=== PATIENT | female | born 1960 | race Hispanic/Latino ===

== ENCOUNTER 2018-01-13 13:50 | Inpatient (IN) | payer MEDICAID, OTHER ==
[2018-01-13 14:01] VITALS: BMI 22.5
[2018-01-13] MEDS ORDERED: Albuterol-Ipratrop 3 mg / 0.5 (3 ml) UD IH STA (14:17)
--- NOTE | 2018-01-13 14:22 | ED PDOC ---
Arrival/HPI - General Chief Complaint: Shortness Of Breath Historian: Patient, Spouse, Family (Daughter) - History of Present Illness Time/Duration: Other (10 days) Symptom Onset: Gradual Symptom Course: Worsening Severity Level: Moderate Activities at Onset: Rest Associated Symptoms (Text): 01/13/18 14:19 Patient complains of approximately a 10 day history of worsening cough congestion shortness of breath chest pain sputum production fever to 102 with chills. She continues to smoke. There was some nausea and vomiting last week, but currently none. No abdominal pain. Past Medical History - Psychiatric Hx Substance Use: No Family/Social History - Physician Review Nursing Documentation Reviewed: Yes Family/Social History: Unknown Family HX Smoking Status: Light Smoker < 10 Cigarettes Daily Hx Alcohol Use: No Hx Substance Use: No Allergies/Home Meds Allergies/Adverse Reactions: Allergies amoxicillin Allergy (Verified 01/13/18 14:03) ANAPHYLAXIS Home Medications: Home Meds Medication Instructions Recorded Confirmed No Known Home Med 01/13/18 01/13/18 Review of Systems - Physician Review All systems were reviewed & negative as marked: Yes - Review of Systems Constitutional: Fatigue, Fevers Respiratory: SOB, Cough, Wheezing Cardiovascular: Chest Pain. absent: Palpitations, Syncope Gastrointestinal: Nausea, Vomiting. absent: Abdominal Pain, Constipation, Diarrhea, Anorexia Neurological: absent: Headache, Dizziness, Focal Weakness Physical Exam Vital Signs Temp Pulse Resp BP Pulse Ox 01/13/18 14:00 97.2 F L 89 19 148/72 100 Temperature: Afebrile Blood Pressure: Normal Pulse: Regular Respiratory Rate: Normal Appearance: Positive for: Non-Toxic, Comfortable, Other (Chronically ill- appearing thin cachectic) Pain Distress: None Mental Status: Positive for: Alert and Oriented X 3 - Systems Exam Head: Present: Atraumatic, Normocephalic Pupils: Present: PERRL Extroacular Muscles: Present: EOMI Conjunctiva: Present: Normal Ears: Present: NORMAL TM, Normal Canal. No: Erythema, TM Bulging Mouth: Present: Moist Mucous Membranes, Other (Poor dentition and multiple missing teeth) Pharnyx: No: ERYTHEMA, EXUDATE, TONSILS ENLARGED Neck: Present: Normal Range of Motion Respiratory/Chest: Present: Wheezes, Decreased Breath Sounds, Rhonchi. No: Good Air Exchange, Respiratory Distress, Accessory Muscle Use, Rales, Retracting, Tachypneic, Tender to Palpation Cardiovascular: Present: Regular Rate and Rhythm, Normal S1, S2. No: Murmurs Abdomen: No: Tenderness, Distention, Peritoneal Signs, Rebound, Guarding Upper Extremity: Present: Normal Inspection. No: Cyanosis, Edema Lower Extremity: Present: Normal Inspection. No: Edema Neurological: Present: GCS=15, CN II-XII Intact, Speech Normal, Motor Func Grossly Intact Skin: Present: Warm, Dry, Normal Color. No: Rashes Psychiatric: Present: Alert, Oriented x 3, Normal Insight, Normal Concentration Medical Decision Making ED Course and Treatment: 01/13/18 14:21 EKG shows normal sinus rhythm rate approximately 80 with poor R waves and no acute ST or T-wave changes. - RAD Interpretation Radiology Orders: 01/13/18 14:17 CHEST PORTABLE [RAD] Stat Chest one view shows no infiltrate effusion or cardiomegaly. Consistent with COPD. Data Abstractor: ED Physician Disposition/Present on Arrival - Present on Arrival Any Indicators Present on Arrival: No History of DVT/PE: No History of Uncontrolled Diabetes: No Urinary Catheter: No History of Decub. Ulcer: No History Surgical Site Infection Following: None - Disposition Have Diagnosis and Disposition been Completed?: Yes Diagnosis: Chest pain, Chronic obstructive pulmonary disease Disposition: HOSPITALIZED Disposition Time: 15:29 Patient Plan: Observation, Telemetry Condition: GOOD Discharge Instructions (ExitCare): Chest Pain (ED) Forms: [facility] ([place])
[2018-01-13 14:49] LABS: BASO # 0.01 K/mm3 (0.0-2.0); BASO % 0.2 % (0.0-3.0); EOS % 0.3 % (1.5-5.0); GRAN # 4.12 (1.4-6.5); HEMOGLOBIN 16.8 g/dL (12.0-16.0); LYMPH # 1.6 (1.2-3.4); MEAN CELL VOLUME 90.6 fl (80.0-105.0); MEAN CORPUSCULAR HEMOGLOBIN 32.1 pg (25.0-35.0); MEAN CORPUSCULAR HGB CONC 35.4 g/dl (31.0-37.0); MEAN PLATELET VOLUME 10.2 fl (7.0-11.0); MONO # 0.5 (0.1-0.6); MONO % 8.5 % (1.0-6.0); RBC 5.23 10^6/uL (3.5-6.1); RED CELL DISTRIBUTION WIDTH 12.8 % (11.5-14.5); WHITE BLOOD COUNT 6.2 10^3/uL (4.5-11.0)
[2018-01-13 14:52] LABS: ALB/GLOB RATIO 1.2 (1.1-1.8); ALBUMIN 4.2 g/dL (3.0-4.8); ALT/SGPT 24 U/L (7-56); AST/SGOT 37 U/L (14-36); BLOOD UREA NITROGEN 5 mg/dL (7-21); CALCIUM 9.3 mg/dL (8.4-10.5); GFR NON-AFRICAN AMERICAN > 60
[2018-01-13 15:03] LABS: B-TYPE NATRIURETIC PEPTIDE 289 pg/mL (0-450); TROPONIN I 0.02 ng/mL
--- NOTE | 2018-01-13 15:14 | RAD ---
Date of service: 01/13/2018 HISTORY: SOB COMPARISON: No prior. FINDINGS: LUNGS: Lungs are hyperinflated with flattened diaphragms with coarsened/increased interstitial markings consistent with chronic changes of COPD. There may be some minimal linear atelectasis and or scarring changes both lung bases... PLEURA: No significant pleural effusion identified, no pneumothorax apparent. CARDIOVASCULAR: No aortic atherosclerotic calcification present. Normal cardiac size. No pulmonary vascular congestion. OSSEOUS STRUCTURES: No significant abnormalities. VISUALIZED UPPER ABDOMEN: Normal. OTHER FINDINGS: None. IMPRESSION: Lungs are hyperinflated with flattened diaphragms with coarsened/increased interstitial markings consistent with chronic changes of COPD. There may be some minimal linear atelectasis and or scarring changes both lung bases...
[2018-01-13] MEDS ORDERED: Albuterol 0.083% Inhal Sol (2.5 mg/3 mL) UD INH STA (15:26)
[2018-01-13] MEDS ORDERED: Albuterol-Ipratrop 3 mg / 0.5 (3 ml) UD IH PRN (16:11)
--- NOTE | 2018-01-13 16:31 | CP.PCM.PN ---
Objective - Vital Signs/Intake and Output Vital Signs (last 24 hours): Temp Pulse Resp BP Pulse Ox 98.0 F 78 18 101/75 100 01/13/18 15:20 01/13/18 15:20 01/13/18 15:20 01/13/18 15:20 01/13/18 15:20 - Medications Medications: Current Medications Albuterol/Ipratropium (Duoneb 3 Mg/0.5 Mg (3 Ml) Ud) 3 ml IH Q4H PRN PRN Reason: Shortness of Breath Azithromycin (Zithromax 500mg In Ns) 500 mg in 250 mls @ 167 mls/hr IVPB DAILY ESME; Protocol Methylprednisolone (Solu-Medrol) 40 mg IVP DAILY ESME - Labs Labs: 01/13/18 14:36 01/13/18 14:36
[2018-01-13 16:46] LABS: FREE T4 1.7 ng/dL (0.78-2.19)
[2018-01-13 17:25] LABS: OSMOLALITY,URINE 158 mosm/kg (300-1000)
[2018-01-13] MEDS ORDERED: Pneumococcal 23-Valent Vaccine IM ONE (18:12)
[2018-01-13] MEDS ORDERED: Influenza Vaccine 60 mcg/0.5 mL SYR (4YR UP) IM ONE (18:12)
[2018-01-13] MEDS ORDERED: Iohexol 350 MG/100 ML VIAL ONE (18:52)
--- NOTE | 2018-01-13 19:42 | CP.PCM.HP ---
<Ania Vivas - Last Filed: 01/13/18 20:31> History of Present Illness - History of Present Illness History of Present Illness: Resident History & Physical for Hospitalist Service Patient is a 57 year old female with past medical history of sciatica presenting with chief complaint of shortness of breath that began one week prior. She has also had a productive cough with whitish sputum in addition to a fever of 102.6 and chills. Patient's daughter at bedside states that she herself was ill recently with similar symptoms and that her symptoms resolved after taking amoxicillin. Patient also admits to sharp, intermittent rib pain on her anterior chest wall which she states is exacerbated by coughing. She has become debilitated to the degree that she is unable to walk down the hallway of her house without becoming short of breath. Denies headache, dizziness, abdominal pain, diarrhea, constipation, dysuria. PMH: sciatica PSH: denies SHx: denies alcohol and illicit drug use. smokes 6 cigarettes for approximately 40 years Allergies: amoxicillin PMD: none 12 point ROS was negative except as stated in HPI Present on Admission - Present on Admission Any Indicators Present on Admission: No Review of Systems - Review of Systems All systems: reviewed and no additional remarkable complaints except (as stated in HPI) Past Patient History - Past Social History Smoking Status: Light Smoker < 10 Cigarettes Daily - CARDIAC Hx Cardiac Disorders: No - PULMONARY Hx Respiratory Disorders: Yes (smokes 6 cigs a day) - NEUROLOGICAL Hx Neurological Disorder: Yes (cold b/l feet ankles) Other/Comment: left leg numbness at times from work related injury to b/l sciatica 8-9 yrs ago, chronic shooting pain and sometimes cannot bear weight to left leg - HEENT Hx HEENT Problems: Yes (missing teeth) - RENAL Hx Chronic Kidney Disease: No - ENDOCRINE/METABOLIC Hx Endocrine Disorders: No - HEMATOLOGICAL/ONCOLOGICAL Hx Blood Disorders: No - INTEGUMENTARY Hx Dermatological Problems: Yes Other/Comment: tips and bottom of toes of both feet red, slight swelling - MUSCULOSKELETAL/RHEUMATOLOGICAL Hx Falls: No - GASTROINTESTINAL Hx Gastrointestinal Disorders: (takes otc nexium for heartburn when needed) - GENITOURINARY/GYNECOLOGICAL Hx Genitourinary Disorders: No - PSYCHIATRIC Hx Substance Use: No - SURGICAL HISTORY Hx Surgeries: No Meds Allergies/Adverse Reactions: Allergies Allergy/AdvReac Type Severity Reaction Status Date / Time amoxicillin Allergy ANAPHYLAXIS Verified 01/13/18 14:03 Physical Exam - Constitutional Appears: Non-toxic, No Acute Distress, Cachectic - Head Exam Head Exam: ATRAUMATIC, NORMOCEPHALIC - Eye Exam Eye Exam: EOMI, Normal appearance, PERRL - ENT Exam ENT Exam: Mucous Membranes Moist, Normal Exam, Normal External Ear Exam - Neck Exam Neck exam: Negative for: Lymphadenopathy, Tenderness, Thyromegaly - Respiratory Exam Respiratory Exam: Clear to Auscultation Bilateral, Wheezes, NORMAL BREATHING PATTERN. absent: Accessory Muscle Use, Decreased Breath Sounds, Rales, Rhonchi, Respiratory Distress, Stridor - Cardiovascular Exam Cardiovascular Exam: REGULAR RHYTHM, +S1, +S2. absent: Systolic Murmur - GI/Abdominal Exam GI & Abdominal Exam: Normal Bowel Sounds, Soft. absent: Distended, Guarding, Rebound, Rigid, Tenderness - Extremities Exam Extremities exam: Positive for: normal capillary refill, pedal pulses present. Negative for: pedal edema, tenderness Additional comments: clubbing noted on nails in upper extremities bilaterally - Neurological Exam Neurological exam: Alert, CN II-XII Intact, Oriented x3 - Psychiatric Exam Psychiatric exam: Normal Affect, Normal Mood - Skin Skin Exam: Dry, Intact, Normal Color, Pallor Results - Vital Signs Recent Vital Signs: Last Vital Signs Temp 97.8 F 01/13/18 18:00 Pulse 69 01/13/18 18:00 Resp 18 01/13/18 18:00 BP 142/80 01/13/18 18:00 Pulse Ox 100 01/13/18 15:20 - Labs Result Diagrams: 01/13/18 14:36 01/13/18 14:36 Labs: Laboratory Results - last 24 hr 01/13/18 01/13/18 01/13/18 14:36 14:36 14:36 WBC 6.2 RBC 5.23 Hgb 16.8 H Hct 47.4 MCV 90.6 MCH 32.1 MCHC 35.4 RDW 12.8 Plt Count 165 MPV 10.2 Gran % 66.0 Lymph % (Auto) 25.0 [place] % (Auto) 8.5 H Eos % (Auto) 0.3 L Baso % (Auto) 0.2 Gran # 4.12 Lymph # (Auto) 1.6 [place] # (Auto) 0.5 Eos # (Auto) 0.0 Baso # (Auto) 0.01 D-Dimer, Quantitative 313 H Sodium 128 L Potassium 4.7 Chloride 86 L Carbon Dioxide 34 H Anion Gap 13 BUN 5 L Creatinine 0.4 L Est GFR ( Amer) > 60 Est GFR (Non-Af Amer) > 60 Random Glucose 109 Calcium 9.3 Magnesium 1.9 Total Bilirubin 0.7 AST 37 H ALT 24 Alkaline Phosphatase 70 Lactate Dehydrogenase 493 Total Creatine Kinase 99 Troponin I 0.02 NT-Pro-B Natriuret Pep 289 Total Protein 7.7 Albumin 4.2 Globulin 3.4 Albumin/Globulin Ratio 1.2 Free T4 TSH 3rd Generation Urine Osmolality Ur Random Sodium 01/13/18 01/13/18 14:36 17:00 WBC RBC Hgb Hct MCV MCH MCHC RDW Plt Count MPV Gran % Lymph % (Auto) [place] % (Auto) Eos % (Auto) Baso % (Auto) Gran # Lymph # (Auto) [place] # (Auto) Eos # (Auto) Baso # (Auto) D-Dimer, Quantitative Sodium Potassium Chloride Carbon Dioxide Anion Gap BUN Creatinine Est GFR ( Amer) Est GFR (Non-Af Amer) Random Glucose Calcium Magnesium Total Bilirubin AST ALT Alkaline Phosphatase Lactate Dehydrogenase Total Creatine Kinase Troponin I NT-Pro-B Natriuret Pep Total Protein Albumin Globulin Albumin/Globulin Ratio Free T4 1.70 TSH 3rd Generation 6.59 H Urine Osmolality 158 L Ur Random Sodium < 5 Assessment & Plan - Assessment and Plan (Free Text) Assessment: Patient is a 57 year old female with no known past medical history presenting with chief complaint of shortness of breath and admitted for workup and management of acute exacerbation of COPD. Plan: Shortness of breath - likely due to acute exacerbation of COPD - currently afebrile, no leukocytosis - EKG shows normal sinus rhythm - CXR shows hyperinflated lungs with flattened diaphragms, increased interstitial markings consistent with chronic COPD - Albuterol, duonebs, aspirin 324 mg PO, methylprednisolone 125 mg IVP give in ED - Duonebs Q4H PRN - methylprednisolone 40 mg IVP daily - troponins Q6H - followup chest CT - PT consulted - counseled on tobacco cessation Elevated d-dimer - followup CT angio to rule out PE Hyponatremia - Na 128 on admission - urine studies Case discussed with attending Dr. Nava Vivas PGY-1 - Date & Time Date: 01/13/18 Time: 16:00 <Clement Vick - Last Filed: 01/14/18 12:11> Results - Vital Signs Recent Vital Signs: Last Vital Signs Temp 98.6 F 01/14/18 06:00 Pulse 79 01/14/18 10:00 Resp 20 01/14/18 06:00 BP 112/72 01/14/18 06:00 Pulse Ox 98 01/14/18 06:00 - Labs Result Diagrams: 01/14/18 07:00 01/14/18 07:00 Labs: Laboratory Results - last 24 hr 01/13/18 01/13/18 01/13/18 14:36 14:36 14:36 WBC 6.2 RBC 5.23 Hgb 16.8 H Hct 47.4 MCV 90.6 MCH 32.1 MCHC 35.4 RDW 12.8 Plt Count 165 MPV 10.2 Gran % 66.0 Lymph % (Auto) 25.0 [place] % (Auto) 8.5 H Eos % (Auto) 0.3 L Baso % (Auto) 0.2 Gran # 4.12 Lymph # (Auto) 1.6 [place] # (Auto) 0.5 Eos # (Auto) 0.0 Baso # (Auto) 0.01 D-Dimer, Quantitative 313 H Sodium 128 L Potassium 4.7 Chloride 86 L Carbon Dioxide 34 H Anion Gap 13 BUN 5 L Creatinine 0.4 L Est GFR ( Amer) > 60 Est GFR (Non-Af Amer) > 60 Random Glucose 109 Calcium 9.3 Magnesium 1.9 Total Bilirubin 0.7 AST 37 H ALT 24 Alkaline Phosphatase 70 Lactate Dehydrogenase 493 Total Creatine Kinase 99 Troponin I 0.02 NT-Pro-B Natriuret Pep 289 Total Protein 7.7 Albumin 4.2 Globulin 3.4 Albumin/Globulin Ratio 1.2 Free T4 TSH 3rd Generation Urine Color Urine Appearance Urine pH Ur Specific [place] Urine Protein Urine Glucose (UA) Urine Ketones Urine Blood Urine Nitrate Urine Bilirubin Urine Urobilinogen Ur Leukocyte Esterase Urine Osmolality Ur Random Sodium 01/13/18 01/13/18 01/13/18 14:36 17:00 17:00 WBC RBC Hgb Hct MCV MCH MCHC RDW Plt Count MPV Gran % Lymph % (Auto) [place] % (Auto) Eos % (Auto) Baso % (Auto) Gran # Lymph # (Auto) [place] # (Auto) Eos # (Auto) Baso # (Auto) D-Dimer, Quantitative Sodium Potassium Chloride Carbon Dioxide Anion Gap BUN Creatinine Est GFR ( Amer) Est GFR (Non-Af Amer) Random Glucose Calcium Magnesium Total Bilirubin AST ALT Alkaline Phosphatase Lactate Dehydrogenase Total Creatine Kinase Troponin I NT-Pro-B Natriuret Pep Total Protein Albumin Globulin Albumin/Globulin Ratio Free T4 1.70 TSH 3rd Generation 6.59 H Urine Color Yellow Urine Appearance Clear Urine pH 6.5 Ur Specific [place] <= 1.005 Urine Protein Negative Urine Glucose (UA) Negative Urine Ketones 15 H Urine Blood Negative Urine Nitrate Negative Urine Bilirubin Negative Urine Urobilinogen 0.2 Ur Leukocyte Esterase Negative Urine Osmolality 158 L Ur Random Sodium < 5 01/13/18 01/14/18 01/14/18 20:47 02:00 07:00 WBC 5.2 RBC 5.20 Hgb 16.6 H Hct 46.7 MCV 89.8 MCH 31.9 MCHC 35.5 RDW 12.8 Plt Count 173 MPV 10.5 Gran % 68.0 Lymph % (Auto) 25.3 [place] % (Auto) 6.5 H Eos % (Auto) 0.0 L Baso % (Auto) 0.2 Gran # 3.55 Lymph # (Auto) 1.3 [place] # (Auto) 0.3 Eos # (Auto) 0.0 Baso # (Auto) 0.01 D-Dimer, Quantitative Sodium Potassium Chloride Carbon Dioxide Anion Gap BUN Creatinine Est GFR ( Amer) Est GFR (Non-Af Amer) Random Glucose Calcium Magnesium Total Bilirubin AST ALT Alkaline Phosphatase Lactate Dehydrogenase Total Creatine Kinase Troponin I < 0.01 D < 0.01 NT-Pro-B Natriuret Pep Total Protein Albumin Globulin Albumin/Globulin Ratio Free T4 TSH 3rd Generation Urine Color Urine Appearance Urine pH Ur Specific [place] Urine Protein Urine Glucose (UA) Urine Ketones Urine Blood Urine Nitrate Urine Bilirubin Urine Urobilinogen Ur Leukocyte Esterase Urine Osmolality Ur Random Sodium 01/14/18 07:00 WBC RBC Hgb Hct MCV MCH MCHC RDW Plt Count MPV Gran % Lymph % (Auto) [place] % (Auto) Eos % (Auto) Baso % (Auto) Gran # Lymph # (Auto) [place] # (Auto) Eos # (Auto) Baso # (Auto) D-Dimer, Quantitative Sodium 130 L Potassium 4.4 Chloride 91 L Carbon Dioxide 30 Anion Gap 13 BUN 11 Creatinine 0.5 L Est GFR ( Amer) > 60 Est GFR (Non-Af Amer) > 60 Random Glucose 106 Calcium 8.9 Magnesium Total Bilirubin 0.6 AST 40 H ALT 24 Alkaline Phosphatase 66 Lactate Dehydrogenase Total Creatine Kinase Troponin I NT-Pro-B Natriuret Pep Total Protein 7.4 Albumin 4.0 Globulin 3.4 Albumin/Globulin Ratio 1.2 Free T4 TSH 3rd Generation Urine Color Urine Appearance Urine pH Ur Specific [place] Urine Protein Urine Glucose (UA) Urine Ketones Urine Blood Urine Nitrate Urine Bilirubin Urine Urobilinogen Ur Leukocyte Esterase Urine Osmolality Ur Random Sodium Attending/Attestation - Attestation I have personally seen and examined this patient.: Yes I have fully participated in the care of the patient.: Yes I have reviewed all pertinent clinical information: Yes Notes (Text): 01/14/18 12:08 Medical record note made by the resident after discussion with my direction and input after the patient was personally seen and examined by me. I have reviewed the chart and agree that the record accurately reflects by personal performance of the history, physical exam, data review, and medical decision-making, in the course for the patient. I have also personally directed the plan of care. 57 year old female with past medical history of sciatica, malnutrition, chronic smoking is admitted cough and dyspne and is found to have COPD Exacerbation . We will start patient on Neb/Steroid and antibiotics.We will monitor chest pain, Atypical in nnature, EKG is negative for ischemic changes, we will get serial troponin. Elevated d dimer, CTA is negative for Pulmonary embolism on preliminary report. Management plan was discussed in detail with patientand family. Education was provided.
[2018-01-13 19:51] LABS: PH,URINE 6.5 (4.7-8.0); URINE BILIRUBIN NEGATIVE (NEGATIVE); URINE BLOOD NEGATIVE (NEGATIVE); URINE GLUCOSE (UA) NEGATIVE (NEGATIVE); URINE LEUKOCYTE ESTERASE NEGATIVE Leu/uL (NEGATIVE); URINE PROTEIN NEGATIVE mg/dL (<30 mg/dL); URINE UROBILINOGEN 0.2 E.U./dL (<1 E.U./dL)
[2018-01-13 19:53] LABS: URINE APPEARANCE CLEAR (CLEAR); URINE COLOR YELLOW (YELLOW)
[2018-01-14 08:03] LABS: ALB/GLOB RATIO 1.2 (1.1-1.8); ALT/SGPT 24 U/L (7-56); AST/SGOT 40 U/L (14-36); BLOOD UREA NITROGEN 11 mg/dL (7-21); CALCIUM 8.9 mg/dL (8.4-10.5); GFR NON-AFRICAN AMERICAN > 60
[2018-01-14 08:09] LABS: BASO # 0.01 K/mm3 (0.0-2.0); BASO % 0.2 % (0.0-3.0); GRAN # 3.55 (1.4-6.5); HEMOGLOBIN 16.6 g/dL (12.0-16.0); LYMPH # 1.3 (1.2-3.4); LYMPH % 25.3 % (22.0-35.0); MEAN CELL VOLUME 89.8 fl (80.0-105.0); MEAN CORPUSCULAR HEMOGLOBIN 31.9 pg (25.0-35.0); MEAN CORPUSCULAR HGB CONC 35.5 g/dl (31.0-37.0); MEAN PLATELET VOLUME 10.5 fl (7.0-11.0); MONO # 0.3 (0.1-0.6); MONO % 6.5 % (1.0-6.0); RBC 5.2 10^6/uL (3.5-6.1); RED CELL DISTRIBUTION WIDTH 12.8 % (11.5-14.5); WHITE BLOOD COUNT 5.2 10^3/uL (4.5-11.0)
[2018-01-14] MEDS: MethylPREDNISolone 40 mg Vial IVP SCH (09:16)
[2018-01-14] MEDS: Azithromycin 500MG/NS 250ml 500 MG/250 ML BAG IVPB SCH (09:32)
--- NOTE | 2018-01-14 12:05 | CP.PCM.PN ---
<Eric Storm - Last Filed: 01/14/18 12:57> Subjective - Date & Time of Evaluation Date of Evaluation: 01/14/18 Time of Evaluation: 09:00 - Subjective Subjective: Eric Storm PGY-1 Progress Note for Hospitalist Service Patient seen and evaluated at bedside. No acute events reported overnight. Patient reports shortness of breath, cough and dizziness. Denies chest pain, palpitations, headaches, abdominal pain, fevers, chills, nausea or vomiting. Objective - Vital Signs/Intake and Output Vital Signs (last 24 hours): Temp Pulse Resp BP Pulse Ox 98.6 F 79 20 112/72 98 01/14/18 06:00 01/14/18 10:00 01/14/18 06:00 01/14/18 06:00 01/14/18 06:00 Intake and Output: 01/14/18 01/14/18 06:59 18:59 Intake Total 300 180 Output Total 30 0 Balance 270 180 - Medications Medications: Current Medications Albuterol/Ipratropium (Duoneb 3 Mg/0.5 Mg (3 Ml) Ud) 3 ml IH Q4H PRN PRN Reason: Shortness of Breath Last Admin: 01/14/18 08:20 Dose: 3 ml Guaifenesin (Robitussin) 100 mg PO Q4H PRN PRN Reason: Cough Azithromycin (Zithromax 500mg In Ns) 500 mg in 250 mls @ 167 mls/hr IVPB DAILY ESME; Protocol Last Admin: 01/14/18 09:32 Dose: 167 mls/hr Methylprednisolone (Solu-Medrol) 40 mg IVP DAILY ESME Last Admin: 01/14/18 09:16 Dose: 40 mg Ondansetron HCl (Zofran Inj) 4 mg IVP Q6H PRN PRN Reason: Nausea/Vomiting Last Admin: 01/14/18 09:17 Dose: 4 mg - Labs Labs: 01/14/18 07:00 01/14/18 07:00 - Additional Findings Additional findings: - Constitutional Appears: Non-toxic, No Acute Distress, Cachectic - Head Exam Head Exam: ATRAUMATIC, NORMOCEPHALIC - Eye Exam Eye Exam: EOMI, Normal appearance, PERRL - ENT Exam ENT Exam: Mucous Membranes Moist, Normal Exam, Normal External Ear Exam - Neck Exam Neck exam: Negative for: Lymphadenopathy, Tenderness, Thyromegaly - Respiratory Exam Respiratory Exam: Wheezes diffusely, NORMAL BREATHING PATTERN. absent: Accessor y Muscle Use, Decreased Breath Sounds, Rales, Rhonchi, Respiratory Distress, Stridor - Cardiovascular Exam Cardiovascular Exam: REGULAR RHYTHM, +S1, +S2. absent: Systolic Murmur - GI/Abdominal Exam GI & Abdominal Exam: Normal Bowel Sounds, Soft. absent: Distended, Guarding, Rebound, Rigid, Tenderness - Extremities Exam Extremities exam: Positive for: normal capillary refill, pedal pulses present. Negative for: pedal edema, tenderness Additional comments: clubbing noted on nails in upper extremities bilaterally - Neurological Exam Neurological exam: Alert, CN II-XII Intact, Oriented x3 - Psychiatric Exam Psychiatric exam: Normal Affect, Normal Mood - Skin Skin Exam: Dry, Intact, Normal Color, Pallor Assessment and Plan - Assessment and Plan (Free Text) Assessment: Patient is a 57 year old female with no known past medical history presenting with chief complaint of shortness of breath and admitted for workup and management of acute exacerbation of COPD. Plan: Shortness of breath - likely due to acute exacerbation of COPD - currently afebrile, no leukocytosis - EKG shows normal sinus rhythm - CXR shows hyperinflated lungs with flattened diaphragms, increased interstitial markings consistent with chronic COPD - Albuterol, duonebs, aspirin 324 mg PO, methylprednisolone 125 mg IVP give in ED - Duonebs Q6H esme and q2 PRN - methylprednisolone 40 mg IVP daily - Azitrhomycing 500 mg daily IVPB - troponins Q6H neg x3 - PT consulted - f/u recs - counseled on tobacco cessation Hyponatremia - Na 128 on admission , corrected to 130 this AM - f/u urine studies Elevated D-dimer - followup CT angio to rule out PE negative on prelim read. Follow up final read Nausea Zofran 4mg q6h PRN Cough Robitussin Patient seen, case reviewed and plan approved by Dr. Vick. Eric Storm, PGY-1 <Clement Vick - Last Filed: 01/14/18 13:39> Objective - Vital Signs/Intake and Output Vital Signs (last 24 hours): Temp Pulse Resp BP Pulse Ox 98.0 F 76 20 128/71 98 01/14/18 12:00 01/14/18 12:00 01/14/18 12:00 01/14/18 12:00 01/14/18 06:00 Intake and Output: 01/14/18 01/14/18 06:59 18:59 Intake Total 300 180 Output Total 30 0 Balance 270 180 - Medications Medications: Current Medications Albuterol/Ipratropium (Duoneb 3 Mg/0.5 Mg (3 Ml) Ud) 3 ml IH [id number] ESME Last Admin: 01/14/18 13:30 Dose: 3 ml Albuterol/Ipratropium (Duoneb 3 Mg/0.5 Mg (3 Ml) Ud) 3 ml IH Q2H PRN PRN Reason: Shortness of Breath Guaifenesin (Robitussin) 100 mg PO Q4H PRN PRN Reason: Cough Azithromycin (Zithromax 500mg In Ns) 500 mg in 250 mls @ 167 mls/hr IVPB DAILY ESME; Protocol Last Admin: 01/14/18 09:32 Dose: 167 mls/hr Methylprednisolone (Solu-Medrol) 40 mg IVP DAILY ESME Last Admin: 01/14/18 09:16 Dose: 40 mg Ondansetron HCl (Zofran Inj) 4 mg IVP Q6H PRN PRN Reason: Nausea/Vomiting Last Admin: 01/14/18 09:17 Dose: 4 mg - Labs Labs: 01/14/18 07:00 01/14/18 07:00 Attending/Attestation - Attestation I have personally seen and examined this patient.: Yes I have fully participated in the care of the patient.: Yes I have reviewed all pertinent clinical information, including history, physical exam and plan: Yes Notes (Text): 01/14/18 13:38 Medical record note made by the resident after discussion with my direction and input after the patient was personally seen and examined by me. I have reviewed the chart and agree that the record accurately reflects by personal performance of the history, physical exam, data review, and medical decision-making, in the course for the patient. I have also personally directed the plan of care. 57 year old female with past medical history of sciatica, malnutrition, chronic smoking was admitted cough and dyspne and was found to have COPD Exacerbation . Patient is still having cough and is dyspnic. Continue Neb/steroid and antibiotics. We will follow up Echo to rule out Pulmonary HTN. chest pain, Atypical in nnature, EKG is negative for ischemic changes, serial troponins are normal. Elevated d dimer, CTA is negative for Pulmonary embolism on preliminary report. Management plan was discussed in detail with patientand family. Education was provided.
[2018-01-14] MEDS ORDERED: Albuterol-Ipratrop 3 mg / 0.5 (3 ml) UD IH PRN (12:09)
[2018-01-14] MEDS: Albuterol-Ipratrop 3 mg / 0.5 (3 ml) UD IH SCH ×2 (13:30→19:31)
--- NOTE | 2018-01-14 15:47 | CT ---
Date of service: 01/13/2018 PROCEDURE: CT Chest with contrast (Pulmonary Angiogram) HISTORY: r/o PE COMPARISON: None available. TECHNIQUE: Axial computed tomography images were obtained of the chest in the pulmonary arterial phase of enhancement. Coronal and sagittal reformatted images were created and reviewed. Intravenous contrast dose: 100 cc Omnipaque 350 Radiation dose: Total exam DLP = 115.92 mGy-cm. This CT exam was performed using one or more of the following dose reduction techniques: Automated exposure control, adjustment of the mA and/or kV according to patient size, and/or use of iterative reconstruction technique. FINDINGS: PULMONARY ARTERIES: The visualized pulmonary trunk, right and left main, lobar, segmental and proximal subsegmental branches of the pulmonary arteries are well opacified with no definitive filling defects seen to suggest acute central pulmonary embolus. Pulmonary trunk measures approximately 01.9 cm. AORTA: No acute findings. No thoracic aortic aneurysm. Ascending thoracic aorta measures approximately 2.4 cm and descending thoracic aorta measures approximately 1.9 cm. Minor aortic atherosclerotic calcification or mural plaque present. LUNGS: Extensive and severe centrilobular and panlobular as well as bullous emphysematous changes. Small nodular density left apex likely represents scarring which is associate with adjacent pleural thickening however follow-up CT scan at 3-6 month interval recommended to assess stability. PLEURAL SPACES: Unremarkable. No effusion or pneumothorax.. Minor left and minimal right apical pleural thickening. There is a tiny calcific density seen in the left lung apex as well. HEART: Heart size within range of normal. No significant pericardial effusion. The LYMPH NODES: No lymphadenopathy. BONES, CHEST WALL: Mild multilevel degenerative spondylosis of the thoracic spine. OTHER FINDINGS: Unremarkable. IMPRESSION: No evidence of acute central pulmonary embolus. Extensive and severe centrilobular and panlobular as well as bullous emphysematous changes. Small nodular density left apex likely represents scarring which is associate with adjacent pleural thickening however follow-up CT scan at 3-6 month interval recommended to assess stability. No acute consolidation.
--- NOTE | 2018-01-14 22:31 | CARD ---
APPROVED REPORT Date of service: 01/13/2018 EKG Measurement Heart [id number] ID [id number] <Conclusion> Normal sinus rhythm Normal ECG
[2018-01-15] MEDS: Albuterol-Ipratrop 3 mg / 0.5 (3 ml) UD IH SCH ×4 (01:07→20:23)
[2018-01-15 06:20] LABS: EOS % 0.1 % (1.5-5.0); GRAN # 11.36 (1.4-6.5); GRAN % 80.7 % (50.0-68.0); HEMOGLOBIN 15.1 g/dL (12.0-16.0); LYMPH # 1.8 (1.2-3.4); LYMPH % 12.4 % (22.0-35.0); MEAN CELL VOLUME 91.1 fl (80.0-105.0); MEAN CORPUSCULAR HEMOGLOBIN 31.3 pg (25.0-35.0); MEAN CORPUSCULAR HGB CONC 34.4 g/dl (31.0-37.0); MEAN PLATELET VOLUME 10.3 fl (7.0-11.0); MONO % 6.8 % (1.0-6.0); RBC 4.82 10^6/uL (3.5-6.1); RED CELL DISTRIBUTION WIDTH 12.9 % (11.5-14.5); WHITE BLOOD COUNT 14.1 10^3/uL (4.5-11.0)
[2018-01-15 08:46] LABS: ALB/GLOB RATIO 1.2 (1.1-1.8); ALBUMIN 3.8 g/dL (3.0-4.8); ALT/SGPT 25 U/L (7-56); AST/SGOT 32 U/L (14-36); BLOOD UREA NITROGEN 10 mg/dL (7-21); CALCIUM 8.9 mg/dL (8.4-10.5); GFR NON-AFRICAN AMERICAN > 60
[2018-01-15] MEDS: Azithromycin 500MG/NS 250ml 500 MG/250 ML BAG IVPB SCH (09:49)
[2018-01-15] MEDS: MethylPREDNISolone 40 mg Vial IVP SCH (09:50)
[2018-01-15] MEDS ORDERED: Fluticasone-Salmeterol 100-50mcg Diskus IH SCH (10:45)
--- NOTE | 2018-01-15 13:16 | CP.PCM.PN ---
<Dudley Crawford - Last Filed: 01/15/18 13:10> Subjective - Date & Time of Evaluation Date of Evaluation: 01/15/18 Time of Evaluation: 13:12 - Subjective Subjective: Dudley Crawford DO PGY1 - Internal Medicine [employer] - Medicine Progress Note Patient was seen and examined at bedside this morning No acute events overnight Patient reports her SOB/ Cough are improving however still present. Remainder of 12 system ROS is negative at this time. Objective - Vital Signs/Intake and Output Vital Signs (last 24 hours): Temp Pulse Resp BP Pulse Ox 98.9 F 85 20 110/75 95 01/15/18 08:09 01/15/18 08:09 01/15/18 08:09 01/15/18 08:09 01/15/18 08:09 - Medications Medications: Current Medications Albuterol/Ipratropium (Duoneb 3 Mg/0.5 Mg (3 Ml) Ud) 3 ml IH [id number] [facility] Last Admin: 01/15/18 07:46 Dose: 3 ml Albuterol/Ipratropium (Duoneb 3 Mg/0.5 Mg (3 Ml) Ud) 3 ml IH Q2H PRN PRN Reason: Shortness of Breath Arformoterol Tartrate (Brovana) 15 mcg IH [id number] [facility] Budesonide (Pulmicort Respules) 0.25 mg IH [id number] [facility] Guaifenesin (Robitussin) 100 mg PO Q4H PRN PRN Reason: Cough Azithromycin (Zithromax 500mg In Ns) 500 mg in 250 mls @ 167 mls/hr IVPB DAILY [facility]; Protocol Last Admin: 01/15/18 09:49 Dose: 167 mls/hr Methylprednisolone (Solu-Medrol) 40 mg IVP DAILY [facility] Last Admin: 01/15/18 09:50 Dose: 40 mg Ondansetron HCl (Zofran Inj) 4 mg IVP Q6H PRN PRN Reason: Nausea/Vomiting Last Admin: 01/14/18 09:17 Dose: 4 mg - Labs Labs: 01/15/18 05:35 01/15/18 06:00 - Constitutional Appears: Non-toxic, No Acute Distress, Cachectic - Head Exam Head Exam: ATRAUMATIC, NORMOCEPHALIC - Eye Exam Eye Exam: EOMI, Normal appearance, PERRL - ENT Exam ENT Exam: Mucous Membranes Moist, Normal Exam, Normal External Ear Exam - Neck Exam Neck exam: Negative for: Lymphadenopathy, Tenderness, Thyromegaly - Respiratory Exam Respiratory Exam: Diffuse mild wheezing throughout all lung robert, prolonged expiratory phase, patient observed coughing in room - Cardiovascular Exam Cardiovascular Exam: REGULAR RHYTHM, +S1, +S2. absent: Systolic Murmur - GI/Abdominal Exam GI & Abdominal Exam: Normal Bowel Sounds, Soft. absent: Distended, Guarding, Rebound, Rigid, Tenderness - Extremities Exam Extremities exam: Positive for: normal capillary refill, pedal pulses present. Negative for: pedal edema, tenderness Additional comments: clubbing noted on nails in upper extremities bilaterally - Neurological Exam Neurological exam: Alert, CN II-XII Intact, Oriented x3 - Psychiatric Exam Psychiatric exam: Normal Affect, Normal Mood - Skin Skin Exam: Dry, Intact, Normal Color, Pallor Assessment and Plan - Assessment and Plan (Free Text) Assessment: 57F w/ no known PMH presented to [facility] on 01/13 w/ CC of SOB and Cough. Patient is most likely suffering from COPD exacerbation. Plan: Shortness of breath - COPD most likely vs PE less likely; however given elevated D-Dimer; must r/o PE - CT Angio shows no evidence of PE - C/w Duonebs Q6H darcie and q2 PRN - C/w methylprednisolone 40 mg IVP daily - C/w Azitrhomycing 500 mg daily IVPB - Start Brovana+Pulmicort 15-0.25 - troponins Q6H neg x2 - PT consulted - f/u recs - counseled on tobacco cessation Hyponatremia -Resolved Nausea - C/w Zofran 4mg q6h PRN Cough - C/w Robitussin GI/DVT PPX: Pepcid/ Lovenox Patient seen, examined, and discussed w/ attending Dr. Reid Crawford DO PGY1 - Internal Medicine [employer] - Medicine Progress Note <Linwood Mathews - Last Filed: 01/15/18 15:15> Objective - Vital Signs/Intake and Output Vital Signs (last 24 hours): Temp Pulse Resp BP Pulse Ox 98.9 F 85 20 110/75 95 01/15/18 08:09 01/15/18 08:09 01/15/18 08:09 01/15/18 08:09 01/15/18 08:09 - Medications Medications: Current Medications Albuterol/Ipratropium (Duoneb 3 Mg/0.5 Mg (3 Ml) Ud) 3 ml IH [id number] [facility] Last Admin: 01/15/18 13:30 Dose: 3 ml Albuterol/Ipratropium (Duoneb 3 Mg/0.5 Mg (3 Ml) Ud) 3 ml IH Q2H PRN PRN Reason: Shortness of Breath Arformoterol Tartrate (Brovana) 15 mcg IH [id number] [facility] Budesonide (Pulmicort Respules) 0.25 mg IH [id number] [facility] Enoxaparin Sodium (Lovenox) 40 mg SC DAILY [facility]; Protocol Last Admin: 01/15/18 14:22 Dose: 40 mg Famotidine (Pepcid) 40 mg PO HS [facility] Guaifenesin (Robitussin) 100 mg PO Q4H PRN PRN Reason: Cough Azithromycin (Zithromax 500mg In Ns) 500 mg in 250 mls @ 167 mls/hr IVPB DAILY [facility]; Protocol Last Admin: 01/15/18 09:49 Dose: 167 mls/hr Methylprednisolone (Solu-Medrol) 40 mg IVP DAILY [facility] Last Admin: 01/15/18 09:50 Dose: 40 mg Ondansetron HCl (Zofran Inj) 4 mg IVP Q6H PRN PRN Reason: Nausea/Vomiting Last Admin: 01/14/18 09:17 Dose: 4 mg - Labs Labs: 01/15/18 05:35 01/15/18 06:00 Attending/Attestation - Attestation I have personally seen and examined this patient.: Yes I have fully participated in the care of the patient.: Yes I have reviewed all pertinent clinical information, including history, physical exam and plan: Yes Notes (Text): 01/15/18 15:10 57 year old female with past medical history of sciatica and chronic smoker presented with cough, shortness of breath of chest pain secondary to acute COPD exacerbation. Serial cardiac enzymes were negative and ACS was ruled out. CXR showed hyperinflated lungs with coarsened interstitial markings consistent with COPD. CT chest showed extensive and severe centrilobular and panlobular and well and bullous emphysematous changes and small nodular density in left apex. Will discuss CT findings with patient and recommended close outpatient pulmonary follow up and CT surveillance. Continue with iv steroids, duonebs and antibiotics. Also started on pulmicort and brovana. Linwood Mathews MD Hospitalist.
[2018-01-15] MEDS: Enoxaparin 40 mg Syringe SC SCH (14:22)
--- NOTE | 2018-01-15 16:33 | CARD ---
APPROVED REPORT Date of service: 01/15/2018 EXAM: Two-dimensional and M-mode echocardiogram with Doppler and color Doppler. INDICATION Dyspnea Chest Pain 2D DIMENSIONS Left Atrium (2D)2.7 (1.6-4.0cm)IVSd1.0 (0.7-1.1cm) LVDd2.3 (3.9-5.9cm)PWd1.0 (0.7-1.1cm) LVDs1.7 (2.5-4.0cm)FS (%) 25.1 % LVEF (%)52.1 (>50%) M-Mode DIMENSIONS Aortic Root2.10 (2.2-3.7cm)Aortic Cusp Exc.1.30 (1.5-2.0cm) Aortic Valve AoV Peak Yvymowog611.0cm/Lucille Peak GR.5mmHg Mitral Valve MV E Qouwihce89.7cm/sMV A Zfyeirph55.2cm/sE/A ratio0.9 TDI E/Lateral E'0.0E/Medial E'0.0 Tricuspid Valve TR Peak Dbnupmad645fi/sRAP [id number] Peak Gr.7mmHg [id number] LEFT VENTRICLE The left ventricle is normal size. There is normal left ventricular wall thickness. The left ventricular function is normal.EF-55% There is normal LV segmental wall motion. Transmitral Doppler flow pattern is Grade III-reversible restrictive diastolic dysfunction. No left ventricle thrombus noted on this study. There is no ventricular septal defect visualized. There is no left ventricular aneurysm. There is no mass noted in the left ventricle. RIGHT VENTRICLE The right ventricle is normal size. There is normal right ventricular wall thickness. The right ventricular systolic function is normal. ATRIA The left atrium size is normal. The right atrium size is normal. The interatrial septum is intact with no evidence for an atrial septal defect. AORTIC VALVE The aortic valve is thickened but opens well. No aortic regurgitation is present. There is no aortic valvular stenosis. There is no aortic valvular vegetation. MITRAL VALVE The mitral valve is thickened but opens well. Mitral regurgitation is trace. There is no mitral valve stenosis. There is no evidence of mitral valve prolapse. TRICUSPID VALVE The tricuspid valve leaflets are thickened , but open well. There is trace tricuspid regurgitation.RVSP-17 mmof Hg. There is no tricuspid valve stenosis. There is no tricuspid valve prolapse or vegetation. PULMONIC VALVE The pulmonary valve is normal in structure. There is no pulmonic valvular regurgitation. There is no pulmonic valvular stenosis. GREAT VESSELS The aortic root is normal in size. The ascending aorta is normal in size. The pulmonary artery is normal. The IVC is normal in size and collapses >50% with inspiration. PERICARDIAL EFFUSION There is no pleural effusion. There is no pericardial effusion. <Conclusion> Normal chamber Size. EF-55% Trace MR/TR RVSP-17 mmof Hg. No Vegetation or thrombus noted.
[2018-01-15] MEDS ORDERED: Bisacodyl 5mg EC Tab PO ONE (17:30)
[2018-01-15] MEDS: Budesonide 0.25 mg/2 ml Inhal Susp UD IH SCH (20:23)
[2018-01-15] MEDS: Arformoterol 15 mcg/2 ml Inh Sol IH SCH (20:23)
[2018-01-15] MEDS: guaiFENesin 100 mg/5 ml Syrup UD PO PRN (23:09)
[2018-01-16] MEDS: Albuterol-Ipratrop 3 mg / 0.5 (3 ml) UD IH SCH ×4 (01:28→20:01)
[2018-01-16 06:56] LABS: GRAN # 8.93 (1.4-6.5); GRAN % 78.2 % (50.0-68.0); HEMOGLOBIN 13.9 g/dL (12.0-16.0); LYMPH # 1.6 (1.2-3.4); LYMPH % 13.7 % (22.0-35.0); MEAN CELL VOLUME 91.6 fl (80.0-105.0); MEAN CORPUSCULAR HEMOGLOBIN 31.4 pg (25.0-35.0); MEAN CORPUSCULAR HGB CONC 34.2 g/dl (31.0-37.0); MEAN PLATELET VOLUME 10.1 fl (7.0-11.0); MONO # 0.9 (0.1-0.6); MONO % 8.1 % (1.0-6.0); RBC 4.43 10^6/uL (3.5-6.1); RED CELL DISTRIBUTION WIDTH 12.9 % (11.5-14.5); WHITE BLOOD COUNT 11.4 10^3/uL (4.5-11.0)
[2018-01-16 07:35] LABS: ALB/GLOB RATIO 1.1 (1.1-1.8); ALBUMIN 3.4 g/dL (3.0-4.8); ALT/SGPT 25 U/L (7-56); AST/SGOT 27 U/L (14-36); BLOOD UREA NITROGEN 8 mg/dL (7-21); CALCIUM 8.5 mg/dL (8.4-10.5); GFR NON-AFRICAN AMERICAN > 60
[2018-01-16] MEDS: Budesonide 0.25 mg/2 ml Inhal Susp UD IH SCH ×2 (07:40→20:01)
[2018-01-16] MEDS: Arformoterol 15 mcg/2 ml Inh Sol IH SCH ×2 (07:40→20:01)
[2018-01-16] MEDS: guaiFENesin 100 mg/5 ml Syrup UD PO PRN (09:47)
[2018-01-16] MEDS: Azithromycin 500MG/NS 250ml 500 MG/250 ML BAG IVPB SCH (09:47)
[2018-01-16] MEDS: Enoxaparin 40 mg Syringe SC SCH (09:48)
[2018-01-16] MEDS: MethylPREDNISolone 40 mg Vial IVP SCH (09:48)
--- NOTE | 2018-01-16 13:50 | CP.PCM.CON ---
History of Present Illness - History of Present Illness History of Present Illness: PULMONARY CONSULT REASON FOR CONSULT: COPD HPI Patient is 57yo female with PMHx of COPD/emphysema, Sciatica, former smoker 50pk years, presented to the ER for 3-4 day history of worsening SOB on exertion with cough productive of yellow sputum, associated with fever. Pt reports one of her family members recently had similar symptoms. Pt denies OLSON, dizziness, CP, palpitations. Endorses 20lb unintentional weight loss over last 4-5 months. NO other constitutional symptoms. Pt admitted for COPD exacerbation, started IV steroids. Pt reports since admission she feels slightly better. CT chest obtained shows severe centilobular emphysema. PMH: sciatica, COPD PSH: denies SHx: denies alcohol and illicit drug use. former smoke, 50pk years Allergies: amoxicillin FHX: NC Past Patient History - Past Social History Smoking Status: Light Smoker < 10 Cigarettes Daily - CARDIAC Hx Cardiac Disorders: No - PULMONARY Hx Respiratory Disorders: Yes (smokes 6 cigs a day) - NEUROLOGICAL Hx Neurological Disorder: Yes (cold b/l feet ankles) Other/Comment: left leg numbness at times from work related injury to b/l sciatica 8-9 yrs ago, chronic shooting pain and sometimes cannot bear weight to left leg - HEENT Hx HEENT Problems: Yes (missing teeth) - RENAL Hx Chronic Kidney Disease: No - ENDOCRINE/METABOLIC Hx Endocrine Disorders: No - HEMATOLOGICAL/ONCOLOGICAL Hx Blood Disorders: No - INTEGUMENTARY Hx Dermatological Problems: Yes Other/Comment: tips and bottom of toes of both feet red, slight swelling - MUSCULOSKELETAL/RHEUMATOLOGICAL Hx Falls: No - GASTROINTESTINAL Hx Gastrointestinal Disorders: (takes otc nexium for heartburn when needed) - GENITOURINARY/GYNECOLOGICAL Hx Genitourinary Disorders: No - PSYCHIATRIC Hx Substance Use: No - SURGICAL HISTORY Hx Surgeries: No Meds Allergies/Adverse Reactions: Allergies Allergy/AdvReac Type Severity Reaction Status Date / Time amoxicillin Allergy ANAPHYLAXIS Verified 01/13/18 14:03 - Medications Medications: Current Medications Albuterol/Ipratropium (Duoneb 3 Mg/0.5 Mg (3 Ml) Ud) 3 ml IH [id number] [facility] Last Admin: 01/16/18 13:24 Dose: 3 ml Albuterol/Ipratropium (Duoneb 3 Mg/0.5 Mg (3 Ml) Ud) 3 ml IH Q2H PRN PRN Reason: Shortness of Breath Arformoterol Tartrate (Brovana) 15 mcg IH [id number] [facility] Last Admin: 01/16/18 07:40 Dose: 15 mcg Budesonide (Pulmicort Respules) 0.25 mg IH [id number] [facility] Last Admin: 01/16/18 07:40 Dose: 0.25 mg Enoxaparin Sodium (Lovenox) 40 mg SC DAILY [facility]; Protocol Last Admin: 01/16/18 09:48 Dose: 40 mg Famotidine (Pepcid) 40 mg PO HS [facility] Last Admin: 01/15/18 23:09 Dose: 40 mg Guaifenesin (Robitussin) 100 mg PO Q4H PRN PRN Reason: Cough Last Admin: 01/16/18 09:47 Dose: 100 mg Azithromycin (Zithromax 500mg In Ns) 500 mg in 250 mls @ 167 mls/hr IVPB DAILY [facility]; Protocol Last Admin: 01/16/18 09:47 Dose: 167 mls/hr Methylprednisolone (Solu-Medrol) 40 mg IVP DAILY [facility] Last Admin: 01/16/18 09:48 Dose: 40 mg Ondansetron HCl (Zofran Inj) 4 mg IVP Q6H PRN PRN Reason: Nausea/Vomiting Last Admin: 01/14/18 09:17 Dose: 4 mg Physical Exam - Constitutional Appears: Non-toxic, No Acute Distress, Cachectic - Head Exam Head Exam: NORMAL INSPECTION - Eye Exam Eye Exam: Normal appearance - ENT Exam ENT Exam: Mucous Membranes Moist - Neck Exam Neck exam: Positive for: Full Rom - Respiratory Exam Respiratory Exam: Decreased Breath Sounds, Clear to Auscultation Bilateral - Cardiovascular Exam Cardiovascular Exam: REGULAR RHYTHM, +S1, +S2 - GI/Abdominal Exam GI & Abdominal Exam: Normal Bowel Sounds, Soft - Extremities Exam Extremities exam: Positive for: normal inspection - Neurological Exam Neurological exam: Alert, Oriented x3 Results - Vital Signs Recent Vital Signs: Last Vital Signs Temp 98.2 F 01/16/18 08:59 Pulse 77 01/16/18 08:59 Resp 19 01/16/18 08:59 BP 105/60 01/16/18 08:59 Pulse Ox 93 L 01/16/18 08:59 - Labs Result Diagrams: 01/16/18 06:00 01/16/18 06:00 Labs: Laboratory Results - last 24 hr 01/16/18 01/16/18 06:00 06:00 WBC 11.4 H RBC 4.43 Hgb 13.9 Hct 40.6 MCV 91.6 MCH 31.4 MCHC 34.2 RDW 12.9 Plt Count 207 MPV 10.1 Gran % 78.2 H Lymph % (Auto) 13.7 L [place] % (Auto) 8.1 H Eos % (Auto) 0.0 L Baso % (Auto) 0.0 Gran # 8.93 H Lymph # (Auto) 1.6 [place] # (Auto) 0.9 H Eos # (Auto) 0.0 Baso # (Auto) 0.00 Sodium 131 L Potassium 3.7 Chloride 93 L Carbon Dioxide 31 Anion Gap 9 L BUN 8 Creatinine 0.4 L Est GFR ( Amer) > 60 Est GFR (Non-Af Amer) > 60 Random Glucose 91 Calcium 8.5 Total Bilirubin 0.7 AST 27 ALT 25 Alkaline Phosphatase 58 Total Protein 6.5 Albumin 3.4 Globulin 3.1 Albumin/Globulin Ratio 1.1 - Imaging and Cardiology CT scan - chest Status: Image reviewed by me, Report reviewed by me Assessment & Plan - Assessment and Plan (Free Text) Assessment: 57yo female a/w COPD exacerbation COPD exacerbation Emphysema Cachexia - currently afebrile, BP stable, comfortable at rest, in NAD, poor air entry throughout, no wheezing noted - labs, imaging, chart reviewed - CY with severe emphysema - 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
--- NOTE | 2018-01-16 16:55 | CP.PCM.PN ---
<Katya Jones - Last Filed: 01/16/18 16:50> Subjective - Date & Time of Evaluation Date of Evaluation: 01/16/18 Time of Evaluation: 16:50 - Subjective Subjective: Katya Jones, PGY-1, Internal Medicine Progress Note for Dr. Mathews Patient seen and evaluated at bedside. Today, patient had episode of shortness of breath shortly after administration of brovana and pulmicort and was on 4L of humidified oxygen. Patient became short of breath while walking from bed to bathroom. Patient reported green sputum but denies fever, wheezing, chest pain, abdominal pain, nausea, vomiting, constipation, diarrhea, dysuria, hematuria. 12-point ROS was negative except for what is listed above. Objective - Vital Signs/Intake and Output Vital Signs (last 24 hours): Temp Pulse Resp BP Pulse Ox 98.2 F 88 19 105/60 93 L 01/16/18 08:59 01/16/18 14:00 01/16/18 08:59 01/16/18 08:59 01/16/18 08:59 - Medications Medications: Current Medications Albuterol/Ipratropium (Duoneb 3 Mg/0.5 Mg (3 Ml) Ud) 3 ml IH [id number] [facility] Last Admin: 01/16/18 13:24 Dose: 3 ml Albuterol/Ipratropium (Duoneb 3 Mg/0.5 Mg (3 Ml) Ud) 3 ml IH Q2H PRN PRN Reason: Shortness of Breath Arformoterol Tartrate (Brovana) 15 mcg IH [id number] [facility] Last Admin: 01/16/18 07:40 Dose: 15 mcg Budesonide (Pulmicort Respules) 0.25 mg IH [id number] [facility] Last Admin: 01/16/18 07:40 Dose: 0.25 mg Enoxaparin Sodium (Lovenox) 40 mg SC DAILY [facility]; Protocol Last Admin: 01/16/18 09:48 Dose: 40 mg Famotidine (Pepcid) 40 mg PO HS [facility] Last Admin: 01/15/18 23:09 Dose: 40 mg Guaifenesin (Robitussin) 100 mg PO Q4H PRN PRN Reason: Cough Last Admin: 01/16/18 09:47 Dose: 100 mg Methylprednisolone (Solu-Medrol) 40 mg IVP DAILY [facility] Last Admin: 01/16/18 09:48 Dose: 40 mg Ondansetron HCl (Zofran Inj) 4 mg IVP Q6H PRN PRN Reason: Nausea/Vomiting Last Admin: 01/14/18 09:17 Dose: 4 mg - Labs Labs: 01/16/18 06:00 01/16/18 06:00 - Constitutional Appears: Well, Non-toxic, No Acute Distress - Head Exam Head Exam: ATRAUMATIC, NORMAL INSPECTION, NORMOCEPHALIC - Eye Exam Eye Exam: EOMI Pupil Exam: PERRL - Neck Exam Neck Exam: Full ROM - Respiratory Exam Respiratory Exam: Clear to Ausculation Bilateral, Respiratory Distress, NORMAL BREATHING PATTERN - Cardiovascular Exam Cardiovascular Exam: REGULAR RHYTHM - GI/Abdominal Exam GI & Abdominal Exam: Soft, Normal Bowel Sounds - Extremities Exam Extremities Exam: Full ROM - Neurological Exam Neurological Exam: Alert, Awake, CN II-XII Intact, Oriented x3 Assessment and Plan - Assessment and Plan (Free Text) Assessment: 57 year old female with past medical history of sciatica and COPD presented with shortness of breath with cough and green sputum. CXR showed hyperinflated lungs and flattened diaphragms. Plan: COPD exacerbation -CXR: hyperinflated lungs and flattened diaphragms. Minimal linear atelectasis. No consolidations seen. -Chest CT: no evidence of acute central pulmonary embolus -As per pulm, patient started on prednisone PO. Patient continued on pulmicort, brovana, and duonebs PRN. -Robitussin PRN for cough. -Pulse ox was 85 today while ambulating. -As per pulmonology, patient will need yearly low density CT scan of Chest for surveillance for lung cancer. Patient will need outpatient PFTs. Hyponatremia -Na is 131 today from 132. -Continue to follow daily CMP. Leukocytosis -Patient does not fulfill SIRS criteria. -Patient likely has reactive leukocytosis. DVT prophylaxis: lovenox GI prophylaxis: pepcid Patient plan discussed with Dr. Mathews. <Linwood Mathews - Last Filed: 01/17/18 07:16> Objective - Vital Signs/Intake and Output Vital Signs (last 24 hours): Temp Pulse Resp BP Pulse Ox 97.9 F 98 H 20 110/72 97 01/16/18 17:59 01/16/18 18:00 01/16/18 17:59 01/16/18 17:59 01/16/18 17:59 - Medications Medications: Current Medications Albuterol/Ipratropium (Duoneb 3 Mg/0.5 Mg (3 Ml) Ud) 3 ml IH [id number] [facility] Last Admin: 01/17/18 02:15 Dose: 3 ml Albuterol/Ipratropium (Duoneb 3 Mg/0.5 Mg (3 Ml) Ud) 3 ml IH Q2H PRN PRN Reason: Shortness of Breath Last Admin: 01/16/18 17:22 Dose: 3 ml Arformoterol Tartrate (Brovana) 15 mcg IH [id number] [facility] Last Admin: 01/16/18 20:01 Dose: 15 mcg Budesonide (Pulmicort Respules) 0.25 mg IH [id number] [facility] Last Admin: 01/16/18 20:01 Dose: 0.25 mg Enoxaparin Sodium (Lovenox) 40 mg SC DAILY [facility]; Protocol Last Admin: 01/16/18 09:48 Dose: 40 mg Famotidine (Pepcid) 40 mg PO HS [facility] Last Admin: 01/16/18 21:06 Dose: 40 mg Guaifenesin (Robitussin) 100 mg PO Q4H PRN PRN Reason: Cough Last Admin: 01/16/18 09:47 Dose: 100 mg Ondansetron HCl (Zofran Inj) 4 mg IVP Q6H PRN PRN Reason: Nausea/Vomiting Last Admin: 01/14/18 09:17 Dose: 4 mg Prednisone (Prednisone Tab) 20 mg PO DAILY [facility] - Labs Labs: 01/17/18 05:45 01/16/18 06:00 Attending/Attestation - Attestation I have personally seen and examined this patient.: Yes I have fully participated in the care of the patient.: Yes I have reviewed all pertinent clinical information, including history, physical exam and plan: Yes Notes (Text): 01/16/18 57 year old female with past medical history of sciatica and chronic smoker presented with cough, shortness of breath of chest pain secondary to acute COPD exacerbation. Serial cardiac enzymes were negative and ACS was ruled out. CXR showed hyperinflated lungs with coarsened interstitial markings consistent with COPD. CT chest showed extensive and severe centrilobular and panlobular and well and bullous emphysematous changes and small nodular density in left apex. CT findings wer discussed with patient and daughter at bedside with recommendati ons of close outpatient pulmonary follow up, PFTs and CT surveillance. Counselled on smoking cessation. Pulmonary evalation was also appreciated. Continue with steroids, duonebs, pulmicort, brovana and antibiotics. Today wheezing has improved although patient still reports dyspnea on exertion. Also with hypoxia requiring oxygen. Will obtain 6 minute walk test to see if she needs home oxygen upon discharge. PT evaluation. Linwood Mathews MD Hospitalist.
[2018-01-17] MEDS: Albuterol-Ipratrop 3 mg / 0.5 (3 ml) UD IH SCH ×4 (02:15→19:50)
[2018-01-17 06:38] LABS: BASO # 0.01 K/mm3 (0.0-2.0); BASO % 0.1 % (0.0-3.0); GRAN # 9.6 (1.4-6.5); GRAN % 79.8 % (50.0-68.0); HEMOGLOBIN 13.1 g/dL (12.0-16.0); LYMPH # 1.5 (1.2-3.4); LYMPH % 12.6 % (22.0-35.0); MEAN CELL VOLUME 92.1 fl (80.0-105.0); MEAN CORPUSCULAR HEMOGLOBIN 31.4 pg (25.0-35.0); MEAN CORPUSCULAR HGB CONC 34.1 g/dl (31.0-37.0); MEAN PLATELET VOLUME 9.8 fl (7.0-11.0); MONO # 0.9 (0.1-0.6); MONO % 7.5 % (1.0-6.0); RBC 4.17 10^6/uL (3.5-6.1)
[2018-01-17 07:15] LABS: ALB/GLOB RATIO 1.1 (1.1-1.8); ALBUMIN 3.3 g/dL (3.0-4.8); ALT/SGPT 27 U/L (7-56); AST/SGOT 23 U/L (14-36); BLOOD UREA NITROGEN 6 mg/dL (7-21); CALCIUM 8.3 mg/dL (8.4-10.5); GFR NON-AFRICAN AMERICAN > 60
[2018-01-17] MEDS: Arformoterol 15 mcg/2 ml Inh Sol IH SCH ×2 (07:52→19:50)
[2018-01-17] MEDS: Budesonide 0.25 mg/2 ml Inhal Susp UD IH SCH ×2 (07:52→19:50)
[2018-01-17] MEDS: Enoxaparin 40 mg Syringe SC SCH (09:51)
--- NOTE | 2018-01-17 15:10 | CP.PCM.PN ---
<Katya Jones - Last Filed: 01/17/18 15:02> Subjective - Date & Time of Evaluation Date of Evaluation: 01/17/18 Time of Evaluation: 15:03 - Subjective Subjective: Katya Jones, PGY-1, Internal Medicine Progress Note for Dr. Mathews Patient seen and evaluated at bedside. Patient had no overnight issues. Patient has not had any shortness of breath episodes since yesterday morning while ambulating. Patient has not ambulated since that time. Patient continues to report cough with green sputum. Patient denies headache, fever, chest pain, heart palpitations, wheezing, nausea, vomiting, constipation, diarrhea, dysuria, and hematuria. 12-point ROS was unremarkable except for what was mentioned above. Objective - Vital Signs/Intake and Output Vital Signs (last 24 hours): Temp Pulse Resp BP Pulse Ox 98.6 F 99 H 19 99/62 L 97 01/17/18 06:00 01/17/18 10:00 01/17/18 06:00 01/17/18 06:00 01/17/18 06:00 - Medications Medications: Current Medications Albuterol/Ipratropium (Duoneb 3 Mg/0.5 Mg (3 Ml) Ud) 3 ml IH [id number] [facility] Last Admin: 01/17/18 13:39 Dose: 3 ml Albuterol/Ipratropium (Duoneb 3 Mg/0.5 Mg (3 Ml) Ud) 3 ml IH Q2H PRN PRN Reason: Shortness of Breath Last Admin: 01/16/18 17:22 Dose: 3 ml Arformoterol Tartrate (Brovana) 15 mcg IH [id number] [facility] Last Admin: 01/17/18 07:52 Dose: 15 mcg Budesonide (Pulmicort Respules) 0.25 mg IH [id number] [facility] Last Admin: 01/17/18 07:52 Dose: 0.25 mg Enoxaparin Sodium (Lovenox) 40 mg SC DAILY [facility]; Protocol Last Admin: 01/17/18 09:51 Dose: 40 mg Famotidine (Pepcid) 40 mg PO HS [facility] Last Admin: 01/16/18 21:06 Dose: 40 mg Guaifenesin (Robitussin) 100 mg PO Q4H PRN PRN Reason: Cough Last Admin: 01/16/18 09:47 Dose: 100 mg Ondansetron HCl (Zofran Inj) 4 mg IVP Q6H PRN PRN Reason: Nausea/Vomiting Last Admin: 01/14/18 09:17 Dose: 4 mg Prednisone (Prednisone Tab) 20 mg PO DAILY [facility] Last Admin: 01/17/18 09:52 Dose: 20 mg - Labs Labs: 01/17/18 05:45 01/17/18 05:45 - Constitutional Appears: Well, Non-toxic, No Acute Distress - Head Exam Head Exam: ATRAUMATIC, NORMAL INSPECTION, NORMOCEPHALIC - Eye Exam Eye Exam: EOMI Pupil Exam: PERRL - Respiratory Exam Respiratory Exam: Clear to Ausculation Bilateral, NORMAL BREATHING PATTERN. absent: Decreased Breath Sounds, Rhonchi, Wheezes - Cardiovascular Exam Cardiovascular Exam: REGULAR RHYTHM, RRR - GI/Abdominal Exam GI & Abdominal Exam: Soft, Tenderness, Normal Bowel Sounds - Extremities Exam Extremities Exam: Full ROM - Neurological Exam Neurological Exam: Alert, Awake, CN II-XII Intact, Oriented x3 - Skin Skin Exam: Dry, Intact, Normal Color Assessment and Plan - Assessment and Plan (Free Text) Assessment: 57 year old female with past medical history of sciatica and COPD presented with shortness of breath with cough and green sputum. CXR showed hyperinflated lungs and flattened diaphragms. Plan: COPD exacerbation -CXR: hyperinflated lungs and flattened diaphragms. Minimal linear atelectasis. No consolidations seen. -Chest CT: no evidence of acute central pulmonary embolus -As per pulmonology, Dr. Betancourt, patient started on prednisone 20 mg PO. Patient continued on pulmicort, brovana, and duonebs PRN. -Prednisone will be tapered every 3 days. Patient should be discharged with spiriva, symbicort, and duonebs. -Robitussin PRN for cough. -Pulse ox was 87 today when evaluated by the respiratory therapist. -As per pulmonology, patient will need yearly low density CT scan of Chest for surveillance for lung cancer. Patient will need outpatient PFTs. -coating manager contacted who mentioned that she would be working to obtain home oxygen for the patient since patient currently does not have insurance. Hyponatremia -Na is 129 today from 131. -Continue to follow daily CMP. Hypocalcemia -Ca: 8.3 from 8.5 -Continue to monitor with daily CMP. Leukocytosis -Patient does not fulfill SIRS criteria. -Patient likely has reactive leukocytosis. DVT prophylaxis: lovenox GI prophylaxis: pepcid Patient plan discussed with Dr. Mathews. <Linwood Mathews - Last Filed: 01/17/18 18:19> Objective - Vital Signs/Intake and Output Vital Signs (last 24 hours): Temp Pulse Resp BP Pulse Ox 100.1 F H 83 20 111/71 96 01/17/18 16:38 01/17/18 18:00 01/17/18 16:38 01/17/18 16:38 01/17/18 16:38 - Medications Medications: Current Medications Albuterol/Ipratropium (Duoneb 3 Mg/0.5 Mg (3 Ml) Ud) 3 ml IH [id number] [facility] Last Admin: 01/17/18 13:39 Dose: 3 ml Albuterol/Ipratropium (Duoneb 3 Mg/0.5 Mg (3 Ml) Ud) 3 ml IH Q2H PRN PRN Reason: Shortness of Breath Last Admin: 01/16/18 17:22 Dose: 3 ml Arformoterol Tartrate (Brovana) 15 mcg IH [id number] [facility] Last Admin: 01/17/18 07:52 Dose: 15 mcg Budesonide (Pulmicort Respules) 0.25 mg IH [id number] [facility] Last Admin: 01/17/18 07:52 Dose: 0.25 mg Enoxaparin Sodium (Lovenox) 40 mg SC DAILY [facility]; Protocol Last Admin: 01/17/18 09:51 Dose: 40 mg Famotidine (Pepcid) 40 mg PO HS [facility] Last Admin: 01/16/18 21:06 Dose: 40 mg Guaifenesin (Robitussin) 100 mg PO Q4H PRN PRN Reason: Cough Last Admin: 01/16/18 09:47 Dose: 100 mg Ondansetron HCl (Zofran Inj) 4 mg IVP Q6H PRN PRN Reason: Nausea/Vomiting Last Admin: 01/14/18 09:17 Dose: 4 mg Prednisone (Prednisone Tab) 20 mg PO DAILY [facility] Last Admin: 01/17/18 09:52 Dose: 20 mg - Labs Labs: 01/17/18 05:45 01/17/18 05:45 Attending/Attestation - Attestation I have personally seen and examined this patient.: Yes I have fully participated in the care of the patient.: Yes I have reviewed all pertinent clinical information, including history, physical exam and plan: Yes Notes (Text): 01/17/18 18:17 57 year old female with past medical history of sciatica and chronic smoker presented with cough, shortness of breath of chest pain secondary to acute COPD exacerbation. Serial cardiac enzymes were negative and ACS was ruled out. CXR showed hyperinflated lungs with coarsened interstitial markings consistent with COPD. CT chest showed extensive and severe centrilobular and panlobular and well and bullous emphysematous changes and small nodular density in left apex. CT findings wer discussed with patient and daughter at bedside with recommendations of close outpatient pulmonary follow up, PFTs and CT surveillance. Pulmonary is following. Continue with steroids, duonebs, pulmicort, brovana and antibiotics. She has hypoxia on room air and will need home oxygen. Will discuss with case checker for home O2 arrangement for d/c planning. Linwood Mathews MD Hospitalist.
--- NOTE | 2018-01-17 16:21 | CP.PCM.PN ---
Subjective - Date & Time of Evaluation Date of Evaluation: 01/17/18 Time of Evaluation: 16:00 - Subjective Subjective: Patient seen and examined. Reports her breathing has significantly improved. Able to ambulate better. Objective - Vital Signs/Intake and Output Vital Signs (last 24 hours): Temp Pulse Resp BP Pulse Ox 98.6 F 99 H 19 99/62 L 97 01/17/18 06:00 01/17/18 14:00 01/17/18 06:00 01/17/18 06:00 01/17/18 06:00 - Medications Medications: Current Medications Albuterol/Ipratropium (Duoneb 3 Mg/0.5 Mg (3 Ml) Ud) 3 ml IH [id number] [facility] Last Admin: 01/17/18 13:39 Dose: 3 ml Albuterol/Ipratropium (Duoneb 3 Mg/0.5 Mg (3 Ml) Ud) 3 ml IH Q2H PRN PRN Reason: Shortness of Breath Last Admin: 01/16/18 17:22 Dose: 3 ml Arformoterol Tartrate (Brovana) 15 mcg IH [id number] [facility] Last Admin: 01/17/18 07:52 Dose: 15 mcg Budesonide (Pulmicort Respules) 0.25 mg IH [id number] [facility] Last Admin: 01/17/18 07:52 Dose: 0.25 mg Enoxaparin Sodium (Lovenox) 40 mg SC DAILY [facility]; Protocol Last Admin: 01/17/18 09:51 Dose: 40 mg Famotidine (Pepcid) 40 mg PO HS [facility] Last Admin: 01/16/18 21:06 Dose: 40 mg Guaifenesin (Robitussin) 100 mg PO Q4H PRN PRN Reason: Cough Last Admin: 01/16/18 09:47 Dose: 100 mg Ondansetron HCl (Zofran Inj) 4 mg IVP Q6H PRN PRN Reason: Nausea/Vomiting Last Admin: 01/14/18 09:17 Dose: 4 mg Prednisone (Prednisone Tab) 20 mg PO DAILY [facility] Last Admin: 01/17/18 09:52 Dose: 20 mg - Labs Labs: 01/17/18 05:45 01/17/18 05:45 - Constitutional Appears: Non-toxic, No Acute Distress, Cachectic, Chronically Ill - Head Exam Head Exam: NORMAL INSPECTION - Eye Exam Eye Exam: Normal appearance - ENT Exam ENT Exam: Mucous Membranes Moist - Neck Exam Neck Exam: Full ROM - Respiratory Exam Respiratory Exam: Clear to Ausculation Bilateral, NORMAL BREATHING PATTERN - Cardiovascular Exam Cardiovascular Exam: REGULAR RHYTHM, +S1, +S2 - GI/Abdominal Exam GI & Abdominal Exam: Soft, Normal Bowel Sounds - Neurological Exam Neurological Exam: Alert, Awake, Oriented x3 - Skin Skin Exam: Normal Color, Warm Assessment and Plan - Assessment and Plan (Free Text) Assessment: 57yo female a/w COPD exacerbation COPD exacerbation Emphysema Cachexia - currently afebrile, BP stable, comfortable at rest, in NAD, NO wheezing noted - labs, imaging, chart reviewed - CT with severe emphysema Recommend: - supp o2 as needed, will need home O2, for minimum 15hr/day (desaturated to 87% on exertion as per documentation) - duonebs PRN - Symbicort 160/4.5 BID - Spiriva daily - PO Prednisone 40mg daily, with taper - will need yearly LDCT of CHEST as surveillance - will need outpatient PFTs - outpatient pulmonary follow up
[2018-01-18] MEDS: Albuterol-Ipratrop 3 mg / 0.5 (3 ml) UD IH SCH ×4 (02:00→19:53)
[2018-01-18 06:39] LABS: BASO # 0.01 K/mm3 (0.0-2.0); BASO % 0.1 % (0.0-3.0); EOS % 0.2 % (1.5-5.0); GRAN # 9.45 (1.4-6.5); GRAN % 79.7 % (50.0-68.0); HEMOGLOBIN 13.8 g/dL (12.0-16.0); LYMPH # 1.6 (1.2-3.4); LYMPH % 13.2 % (22.0-35.0); MEAN CORPUSCULAR HEMOGLOBIN 31.1 pg (25.0-35.0); MEAN CORPUSCULAR HGB CONC 33.4 g/dl (31.0-37.0); MEAN PLATELET VOLUME 9.4 fl (7.0-11.0); MONO # 0.8 (0.1-0.6); MONO % 6.8 % (1.0-6.0); RBC 4.44 10^6/uL (3.5-6.1); RED CELL DISTRIBUTION WIDTH 13.2 % (11.5-14.5); WHITE BLOOD COUNT 11.9 10^3/uL (4.5-11.0)
[2018-01-18 06:49] LABS: ALB/GLOB RATIO 1.1 (1.1-1.8); ALBUMIN 3.5 g/dL (3.0-4.8); ALT/SGPT 41 U/L (7-56); AST/SGOT 41 U/L (14-36); BLOOD UREA NITROGEN 6 mg/dL (7-21); CALCIUM 8.8 mg/dL (8.4-10.5); GFR NON-AFRICAN AMERICAN > 60
[2018-01-18] MEDS: Arformoterol 15 mcg/2 ml Inh Sol IH SCH ×2 (07:33→19:53)
[2018-01-18] MEDS: Budesonide 0.25 mg/2 ml Inhal Susp UD IH SCH ×2 (07:33→19:53)
[2018-01-18] MEDS: Enoxaparin 40 mg Syringe SC SCH (09:12)
--- NOTE | 2018-01-18 09:23 | CP.PCM.PN ---
<Katya Jones - Last Filed: 01/18/18 09:18> Subjective - Date & Time of Evaluation Date of Evaluation: 01/18/18 Time of Evaluation: 09:18 - Subjective Subjective: Katya Jones, PGY-1, Internal Medicine Progress Note for Dr. Mathews Patient seen and evaluated at bedside. Patient continues to report of green productive cough. She denies shortness of breath, wheezing, nausea, vomiting, chest pain, heart palpitations, constipation, diarrhea, dysuria, and hematuria. 12-point ROS was unremarkable except for what was reported above. Objective - Vital Signs/Intake and Output Vital Signs (last 24 hours): Temp Pulse Resp BP Pulse Ox 100.1 F H 80 20 111/71 96 01/17/18 16:38 01/18/18 06:00 01/17/18 16:38 01/17/18 16:38 01/17/18 16:38 Intake and Output: 01/18/18 01/18/18 06:59 18:59 Intake Total 480 Balance 480 - Medications Medications: Current Medications Albuterol/Ipratropium (Duoneb 3 Mg/0.5 Mg (3 Ml) Ud) 3 ml IH [id number] [facility] Last Admin: 01/18/18 07:33 Dose: 3 ml Albuterol/Ipratropium (Duoneb 3 Mg/0.5 Mg (3 Ml) Ud) 3 ml IH Q2H PRN PRN Reason: Shortness of Breath Last Admin: 01/16/18 17:22 Dose: 3 ml Arformoterol Tartrate (Brovana) 15 mcg IH [id number] [facility] Last Admin: 01/18/18 07:33 Dose: 15 mcg Budesonide (Pulmicort Respules) 0.25 mg IH [id number] [facility] Last Admin: 01/18/18 07:33 Dose: 0.25 mg Enoxaparin Sodium (Lovenox) 40 mg SC DAILY [facility]; Protocol Last Admin: 01/18/18 09:12 Dose: 40 mg Famotidine (Pepcid) 40 mg PO HS [facility] Last Admin: 01/17/18 21:00 Dose: 40 mg Guaifenesin (Robitussin) 100 mg PO Q4H PRN PRN Reason: Cough Last Admin: 01/16/18 09:47 Dose: 100 mg Ondansetron HCl (Zofran Inj) 4 mg IVP Q6H PRN PRN Reason: Nausea/Vomiting Last Admin: 01/14/18 09:17 Dose: 4 mg Prednisone (Prednisone Tab) 40 mg PO DAILY [facility] Last Admin: 01/18/18 09:12 Dose: 40 mg - Labs Labs: 01/18/18 06:00 01/18/18 06:00 - Constitutional Appears: Well, Non-toxic, No Acute Distress - Head Exam Head Exam: ATRAUMATIC, NORMAL INSPECTION, NORMOCEPHALIC - Eye Exam Eye Exam: EOMI Pupil Exam: PERRL - Respiratory Exam Respiratory Exam: Clear to Ausculation Bilateral, NORMAL BREATHING PATTERN - Cardiovascular Exam Cardiovascular Exam: REGULAR RHYTHM - GI/Abdominal Exam GI & Abdominal Exam: Soft, Normal Bowel Sounds - Extremities Exam Extremities Exam: Full ROM - Neurological Exam Neurological Exam: Alert, Awake, CN II-XII Intact, Oriented x3 Neuro motor strength exam: Left Upper Extremity: 5, Right Upper Extremity: 5, Left Lower Extremity: 5, Right Lower Extremity: 5 Assessment and Plan - Assessment and Plan (Free Text) Assessment: 57 year old female with past medical history of sciatica and COPD presented with shortness of breath with cough and green sputum. CXR showed hyperinflated lungs and flattened diaphragms. Plan: COPD exacerbation -CXR: hyperinflated lungs and flattened diaphragms. Minimal linear atelectasis. No consolidations seen. -Chest CT: no evidence of acute central pulmonary embolus -As per pulmonology, Dr. Betancourt, patient started on prednisone 20 mg PO. Patient continued on pulmicort, brovana, and duonebs PRN. -Prednisone will be tapered every 3 days. Patient should be discharged with spiriva, symbicort, and duonebs. -Robitussin PRN for cough. -Pulse ox was 87 today when evaluated by the respiratory therapist. -As per pulmonology, patient will need yearly low density CT scan of Chest for surveillance for lung cancer. Patient will need outpatient PFTs. -logistics solution manager contacted who mentioned that she would be working to obtain home oxygen for the patient since patient currently does not have insurance. Hyponatremia -Na is 131 today from 131. -Continue to follow daily CMP. Hypocalcemia-resolved -Ca: 8.8 from 8.3 -Continue to monitor with daily CMP. Leukocytosis -Patient does not fulfill SIRS criteria. -Patient likely has reactive leukocytosis. DVT prophylaxis: lovenox GI prophylaxis: pepcid Patient plan discussed with Dr. Mathews. <Linwood Mathews - Last Filed: 01/19/18 06:44> Objective - Vital Signs/Intake and Output Vital Signs (last 24 hours): Temp Pulse Resp BP Pulse Ox 97.7 F 80 19 111/73 96 01/18/18 17:07 01/18/18 17:07 01/18/18 17:07 01/18/18 17:07 01/18/18 17:07 Intake and Output: 01/18/18 01/19/18 18:59 06:59 Intake Total 600 Balance 600 - Medications Medications: Current Medications Albuterol/Ipratropium (Duoneb 3 Mg/0.5 Mg (3 Ml) Ud) 3 ml IH [id number] [facility] Last Admin: 01/19/18 02:10 Dose: 3 ml Albuterol/Ipratropium (Duoneb 3 Mg/0.5 Mg (3 Ml) Ud) 3 ml IH Q2H PRN PRN Reason: Shortness of Breath Last Admin: 01/16/18 17:22 Dose: 3 ml Arformoterol Tartrate (Brovana) 15 mcg IH [id number] [facility] Last Admin: 01/18/18 19:53 Dose: 15 mcg Budesonide (Pulmicort Respules) 0.25 mg IH [id number] [facility] Last Admin: 01/18/18 19:53 Dose: 0.25 mg Enoxaparin Sodium (Lovenox) 40 mg SC DAILY [facility]; Protocol Last Admin: 01/18/18 09:12 Dose: 40 mg Famotidine (Pepcid) 40 mg PO HS [facility] Last Admin: 01/18/18 21:25 Dose: 40 mg Guaifenesin (Robitussin) 100 mg PO Q4H PRN PRN Reason: Cough Last Admin: 01/16/18 09:47 Dose: 100 mg Ondansetron HCl (Zofran Inj) 4 mg IVP Q6H PRN PRN Reason: Nausea/Vomiting Last Admin: 01/14/18 09:17 Dose: 4 mg Prednisone (Prednisone Tab) 40 mg PO DAILY [facility] Last Admin: 01/18/18 09:12 Dose: 40 mg - Labs Labs: 01/18/18 06:00 01/18/18 06:00 Attending/Attestation - Attestation I have personally seen and examined this patient.: Yes I have fully participated in the care of the patient.: Yes I have reviewed all pertinent clinical information, including history, physical exam and plan: Yes Notes (Text): 01/18/18 57 year old female with past medical history of sciatica and chronic smoker presented with cough, shortness of breath of chest pain secondary to acute COPD exacerbation. Serial cardiac enzymes were negative and ACS was ruled out. CXR showed hyperinflated lungs with coarsened interstitial markings consistent with COPD. CT chest showed extensive and severe centrilobular and panlobular and well and bullous emphysematous changes and small nodular density in left apex. CT findings were discussed with patient and daughter at bedside with recommendations of close outpatient pulmonary follow up, PFTs and CT surveillance. Pulmonary is following. Continue with tapering steroids, duoneyosef pulmicort, a nd brovanminerva. She had hypoxia on room air and will need home oxygen. Awaiting for home O2 arrangements for d/c planning. Linwood Mathews MD Hospitalist.
[2018-01-19] MEDS: Albuterol-Ipratrop 3 mg / 0.5 (3 ml) UD IH SCH ×3 (02:10→13:47)
[2018-01-19 06:52] VITALS: BP 102/67; PULSE 70; RESP 20; TEMP 97.9; O2SAT 100
[2018-01-19 07:03] LABS: BASO # 0.01 K/mm3 (0.0-2.0); BASO % 0.1 % (0.0-3.0); EOS % 0.2 % (1.5-5.0); GRAN # 5.68 (1.4-6.5); GRAN % 68.5 % (50.0-68.0); HEMOGLOBIN 13.2 g/dL (12.0-16.0); LYMPH # 1.9 (1.2-3.4); MEAN CELL VOLUME 93.3 fl (80.0-105.0); MEAN CORPUSCULAR HEMOGLOBIN 31.5 pg (25.0-35.0); MEAN CORPUSCULAR HGB CONC 33.8 g/dl (31.0-37.0); MEAN PLATELET VOLUME 9.1 fl (7.0-11.0); MONO # 0.7 (0.1-0.6); MONO % 8.2 % (1.0-6.0); RBC 4.19 10^6/uL (3.5-6.1); RED CELL DISTRIBUTION WIDTH 13.2 % (11.5-14.5); WHITE BLOOD COUNT 8.3 10^3/uL (4.5-11.0)
[2018-01-19 07:15] LABS: ALBUMIN 3.3 g/dL (3.0-4.8); ALT/SGPT 95 U/L (7-56); AST/SGOT 97 U/L (14-36); BLOOD UREA NITROGEN 6 mg/dL (7-21); GFR NON-AFRICAN AMERICAN > 60
[2018-01-19] MEDS: Arformoterol 15 mcg/2 ml Inh Sol IH SCH (07:35)
[2018-01-19] MEDS: Budesonide 0.25 mg/2 ml Inhal Susp UD IH SCH (07:36)
[2018-01-19] MEDS: Enoxaparin 40 mg Syringe SC SCH (09:29)
[2018-01-19] MEDS: guaiFENesin 100 mg/5 ml Syrup UD PO PRN (10:02)
--- NOTE | 2018-01-19 14:36 | CP.PCM.DIS ---
<KengeovannaKatya cui - Last Filed: 01/19/18 14:32> Provider - Provider Date of Admission: 01/14/18 10:44 Attending physician: Linwood Mathews MD Primary care physician: NO PRIMARY CARE PROVIDER Consults: 01/13/18 18:12 Inpatient CUT OFF [facility] Core Measures Referral Routine Comment: cp Physician Instructions: Reason For Exam: eval Respiratory Therapy Referral Routine Comment: smoker Physician Instructions: Reason For Exam: eval Transition In Care/Readmission Reduction Routine Comment: cp Physician Instructions: Reason For Exam: eval 01/16/18 11:24 Pulmonology Consult Routine Comment: extensive COPD with hypoxia on ambulation. Consulting Provider: Lewis Betancourt Consulting Physician: Lewis Betancourt Reason for Consult: extensive COPD with hypoxia on ambulation. Time Spent in preparation of Discharge (in minutes): 60 Diagnosis - Discharge Diagnosis (1) Chronic obstructive pulmonary disease Status: Acute Hospital Course - Lab Results Lab Results: Most Recent Lab Values WBC 8.3 10^3/uL (4.5-11.0) D 01/19/18 06:00 RBC 4.19 10^6/uL (3.5-6.1) 01/19/18 06:00 Hgb 13.2 g/dL (12.0-16.0) 01/19/18 06:00 Hct 39.1 % (36.0-48.0) 01/19/18 06:00 MCV 93.3 fl (80.0-105.0) 01/19/18 06:00 MCH 31.5 pg (25.0-35.0) 01/19/18 06:00 MCHC 33.8 g/dl (31.0-37.0) 01/19/18 06:00 RDW 13.2 % (11.5-14.5) 01/19/18 06:00 Plt Count 311 10^3/uL (120.0-450.0) 01/19/18 06:00 MPV 9.1 fl (7.0-11.0) 01/19/18 06:00 Gran % 68.5 % (50.0-68.0) H 01/19/18 06:00 Lymph % (Auto) 23.0 % (22.0-35.0) 01/19/18 06:00 [place] % (Auto) 8.2 % (1.0-6.0) H 01/19/18 06:00 Eos % (Auto) 0.2 % (1.5-5.0) L 01/19/18 06:00 Baso % (Auto) 0.1 % (0.0-3.0) 01/19/18 06:00 Gran # 5.68 (1.4-6.5) 01/19/18 06:00 Lymph # (Auto) 1.9 (1.2-3.4) 01/19/18 06:00 [place] # (Auto) 0.7 (0.1-0.6) H 01/19/18 06:00 Eos # (Auto) 0.0 (0.0-0.7) 01/19/18 06:00 Baso # (Auto) 0.01 K/mm3 (0.0-2.0) 01/19/18 06:00 D-Dimer, Quantitative 313 ng/mlDDU (0-243) H 01/13/18 14:36 Sodium 134 mmol/L (132-148) 01/19/18 06:00 Potassium 4.4 mmol/L (3.6-5.0) 01/19/18 06:00 Chloride 94 mmol/L (98-107) L 01/19/18 06:00 Carbon Dioxide 36 mmol/L (21-33) H 01/19/18 06:00 Anion Gap 8 (10-20) L 01/19/18 06:00 BUN 6 mg/dL (7-21) L 01/19/18 06:00 Creatinine 0.5 mg/dl (0.7-1.2) L 01/19/18 06:00 Est GFR ( Amer) > 60 01/19/18 06:00 Est GFR (Non-Af Amer) > 60 01/19/18 06:00 Random Glucose 91 mg/dL (70-110) 01/19/18 06:00 Calcium 9.0 mg/dL (8.4-10.5) 01/19/18 06:00 Magnesium 1.9 mg/dL (1.7-2.2) 01/13/18 14:36 Total Bilirubin 0.4 mg/dL (0.2-1.3) 01/19/18 06:00 AST 97 U/L (14-36) H D 01/19/18 06:00 ALT 95 U/L (7-56) H 01/19/18 06:00 Alkaline Phosphatase 65 U/L (38-126) 01/19/18 06:00 Lactate Dehydrogenase 493 U/L (333-699) 01/13/18 14:36 Total Creatine Kinase 99 U/L (35-230) 01/13/18 14:36 Troponin I < 0.01 ng/mL 01/14/18 02:00 NT-Pro-B Natriuret Pep 289 pg/mL (0-450) 01/13/18 14:36 Total Protein 6.6 g/dL (5.8-8.3) 01/19/18 06:00 Albumin 3.3 g/dL (3.0-4.8) 01/19/18 06:00 Globulin 3.3 gm/dL 01/19/18 06:00 Albumin/Globulin Ratio 1.0 (1.1-1.8) L 01/19/18 06:00 Free T4 1.70 ng/dL (0.78-2.19) 01/13/18 14:36 TSH 3rd Generation 6.59 mIU/mL (0.46-4.68) H 01/13/18 14:36 Urine Color Yellow (YELLOW) 01/13/18 17:00 Urine Appearance Clear (CLEAR) 01/13/18 17:00 Urine pH 6.5 (4.7-8.0) 01/13/18 17:00 Ur Specific Hurt <= 1.005 (1.005-1.035) 01/13/18 17:00 Urine Protein Negative mg/dL (<30 mg/dL) 01/13/18 17:00 Urine Glucose (UA) Negative mg/dL (NEGATIVE) 01/13/18 17:00 Urine Ketones 15 mg/dL (NEGATIVE) H 01/13/18 17:00 Urine Blood Negative (NEGATIVE) 01/13/18 17:00 Urine Nitrate Negative (NEGATIVE) 01/13/18 17:00 Urine Bilirubin Negative (NEGATIVE) 01/13/18 17:00 Urine Urobilinogen 0.2 E.U./dL (<1 E.U./dL) 01/13/18 17:00 Ur Leukocyte Esterase Negative Katiana/uL (NEGATIVE) 01/13/18 17:00 Urine Osmolality 158 mosm/kg (300-1000) L 01/13/18 17:00 Ur Random Sodium < 5 meq/L 01/13/18 17:00 - Hospital Course Hospital Course: Katya Jones, PGY-1, Internal Medicine Discharge Summary for Dr. Mathews 57 year old female with past medical history of sciatica presented with shortness of breath for 1 week, fever, and cough with green productive sputum. Patient was initially not able to walk down the [place] without getting short of breath. Patient had significant smoking history, smoking 6 cigarettes a day for 40 years. CXR showed hyperinfilated lungs with flattened diaphragms with increased interstitial marking significant for probable COPD. D-Dimer was elevated. CTA showed no evidence of pulmonary embolism with left apex pleural thickening. Pulmonology was consulted for recommendations. Albuterol, duonebs, and methylprednisone were given in the emergency department. Patient was subsequently started on albuterol inhaler Q6 and Q2PRN, methylprednisone 40 daily, and azithromycin 500 mg daily for 5 days, which helped improve her symptoms. Patient was later started on brovana and pulmicort. Methylprednisone was stopped after 3 days and oral prednisone 40 mg was started. 3 troponin levels were negative. Patient was given aspirin 324 mg on admission. Patient initially had hyponatremia at 128 on admission, which improved to 134 throughout the admission. Patient is stable and ready for discharge. Patient should be placed on 4L of home oxygen, spiriva, symbicort, and duonebs. Patient should have low density CT for evaluation for pulmonary cancer yearly due to patient's smoking history. In addition, patient should have routine pulmonary function testing performed. Patient should follow up at [facility] and with Dr. Betancourt, pulmonology. Patient was told to return to the emergency department if patient had worsening symptoms or new concerning symptoms. This is a brief summary of the events that transpired at the hospital. For complete depiction of patient's hospital stay, please refer to the medical documentation. - Date & Time of H&P Date of H&P: 01/19/18 Time of H&P: 14:33 Discharge Exam - Head Exam Head Exam: ATRAUMATIC, NORMAL INSPECTION, NORMOCEPHALIC - Eye Exam Eye Exam: EOMI, Normal appearance - Neck Exam Neck exam: Full Rom - Respiratory Exam Respiratory Exam: Wheezes (very mild ), NORMAL BREATHING PATTERN - Cardiovascular Exam Cardiovascular Exam: REGULAR RHYTHM, RRR - GI/Abdominal Exam GI & Abdominal Exam: Normal Bowel Sounds, Soft - Extremities Exam Extremities exam: full ROM - Neurological Exam Neurological exam: Alert, CN II-XII Intact, Oriented x3 - Skin Skin Exam: Dry, Intact, Normal Color Discharge Plan - Discharge Medications Prescriptions: Albuterol/Ipratropium [Duoneb 3 MG/3 Ml-0.5 MG/3 Ml 3 Ml] 1 ea IH Q6H PRN #1 neb PRN Reason: Shortness Of Breath Budesonide/Formoterol Fumarate [Symbicort] 1 aer IH BID #1 aer Prednisone [Deltasone] See Taper PO DAILY #10 tablet Tiotropium [Spiriva] 18 mcg IH DAILY #30 cap - Follow Up Plan Condition: GOOD Disposition: HOME/ ROUTINE Instructions: Chest Pain (DC), Exacerbation of COPD (DC) Additional Instructions: TAKE PRESCRIBED MEDICATION ORDERED. PLEASE RETURN TO EMERGENCY ROOM IF WORSENING OF SHORTNESS OF BREATH OCCURS AND CONTACT YOUR PRIMARY CARE PHYSICIAN Referrals: PCP,NO [Primary Care Provider] - <Linwood Mathews - Last Filed: 01/19/18 17:42> Provider - Provider Date of Admission: 01/14/18 10:44 Attending physician: Linwood Mathews MD Primary care physician: NO PRIMARY CARE PROVIDER Consults: 01/13/18 18:12 Inpatient CUT OFF [facility] Core Measures Referral Routine Comment: cp Physician Instructions: Reason For Exam: eval Respiratory Therapy Referral Routine Comment: smoker Physician Instructions: Reason For Exam: eval Transition In Care/Readmission Reduction Routine Comment: cp Physician Instructions: Reason For Exam: eval 01/16/18 11:24 Pulmonology Consult Routine Comment: extensive COPD with hypoxia on ambulation. Consulting Provider: Lewis Betancourt Consulting Physician: Lewis Betancourt Reason for Consult: extensive COPD with hypoxia on ambulation. Hospital Course - Lab Results Lab Results: Most Recent Lab Values WBC 8.3 10^3/uL (4.5-11.0) D 01/19/18 06:00 RBC 4.19 10^6/uL (3.5-6.1) 01/19/18 06:00 Hgb 13.2 g/dL (12.0-16.0) 01/19/18 06:00 Hct 39.1 % (36.0-48.0) 01/19/18 06:00 MCV 93.3 fl (80.0-105.0) 01/19/18 06:00 MCH 31.5 pg (25.0-35.0) 01/19/18 06:00 MCHC 33.8 g/dl (31.0-37.0) 01/19/18 06:00 RDW 13.2 % (11.5-14.5) 01/19/18 06:00 Plt Count 311 10^3/uL (120.0-450.0) 01/19/18 06:00 MPV 9.1 fl (7.0-11.0) 01/19/18 06:00 Gran % 68.5 % (50.0-68.0) H 01/19/18 06:00 Lymph % (Auto) 23.0 % (22.0-35.0) 01/19/18 06:00 [place] % (Auto) 8.2 % (1.0-6.0) H 01/19/18 06:00 Eos % (Auto) 0.2 % (1.5-5.0) L 01/19/18 06:00 Baso % (Auto) 0.1 % (0.0-3.0) 01/19/18 06:00 Gran # 5.68 (1.4-6.5) 01/19/18 06:00 Lymph # (Auto) 1.9 (1.2-3.4) 01/19/18 06:00 [place] # (Auto) 0.7 (0.1-0.6) H 01/19/18 06:00 Eos # (Auto) 0.0 (0.0-0.7) 01/19/18 06:00 Baso # (Auto) 0.01 K/mm3 (0.0-2.0) 01/19/18 06:00 D-Dimer, Quantitative 313 ng/mlDDU (0-243) H 01/13/18 14:36 Sodium 134 mmol/L (132-148) 01/19/18 06:00 Potassium 4.4 mmol/L (3.6-5.0) 01/19/18 06:00 Chloride 94 mmol/L (98-107) L 01/19/18 06:00 Carbon Dioxide 36 mmol/L (21-33) H 01/19/18 06:00 Anion Gap 8 (10-20) L 01/19/18 06:00 BUN 6 mg/dL (7-21) L 01/19/18 06:00 Creatinine 0.5 mg/dl (0.7-1.2) L 01/19/18 06:00 Est GFR ( Amer) > 60 01/19/18 06:00 Est GFR (Non-Af Amer) > 60 01/19/18 06:00 Random Glucose 91 mg/dL (70-110) 01/19/18 06:00 Calcium 9.0 mg/dL (8.4-10.5) 01/19/18 06:00 Magnesium 1.9 mg/dL (1.7-2.2) 01/13/18 14:36 Total Bilirubin 0.4 mg/dL (0.2-1.3) 01/19/18 06:00 AST 97 U/L (14-36) H D 01/19/18 06:00 ALT 95 U/L (7-56) H 01/19/18 06:00 Alkaline Phosphatase 65 U/L (38-126) 01/19/18 06:00 Lactate Dehydrogenase 493 U/L (333-699) 01/13/18 14:36 Total Creatine Kinase 99 U/L (35-230) 01/13/18 14:36 Troponin I < 0.01 ng/mL 01/14/18 02:00 NT-Pro-B Natriuret Pep 289 pg/mL (0-450) 01/13/18 14:36 Total Protein 6.6 g/dL (5.8-8.3) 01/19/18 06:00 Albumin 3.3 g/dL (3.0-4.8) 01/19/18 06:00 Globulin 3.3 gm/dL 01/19/18 06:00 Albumin/Globulin Ratio 1.0 (1.1-1.8) L 01/19/18 06:00 Free T4 1.70 ng/dL (0.78-2.19) 01/13/18 14:36 TSH 3rd Generation 6.59 mIU/mL (0.46-4.68) H 01/13/18 14:36 Urine Color Yellow (YELLOW) 01/13/18 17:00 Urine Appearance Clear (CLEAR) 01/13/18 17:00 Urine pH 6.5 (4.7-8.0) 01/13/18 17:00 Ur Specific Hurt <= 1.005 (1.005-1.035) 01/13/18 17:00 Urine Protein Negative mg/dL (<30 mg/dL) 01/13/18 17:00 Urine Glucose (UA) Negative mg/dL (NEGATIVE) 01/13/18 17:00 Urine Ketones 15 mg/dL (NEGATIVE) H 01/13/18 17:00 Urine Blood Negative (NEGATIVE) 01/13/18 17:00 Urine Nitrate Negative (NEGATIVE) 01/13/18 17:00 Urine Bilirubin Negative (NEGATIVE) 01/13/18 17:00 Urine Urobilinogen 0.2 E.U./dL (<1 E.U./dL) 01/13/18 17:00 Ur Leukocyte Esterase Negative Katiana/uL (NEGATIVE) 01/13/18 17:00 Urine Osmolality 158 mosm/kg (300-1000) L 01/13/18 17:00 Ur Random Sodium < 5 meq/L 01/13/18 17:00 Attending/Attestation - Attestation I have personally seen and examined this patient.: Yes I have fully participated in the care of the patient.: Yes I have reviewed all pertinent clinical information, including history, physical exam and plan: Yes Notes (Text): 01/19/18 17:38 57 year old female with past medical history of sciatica and chronic smoker presented with cough, shortness of breath of chest pain secondary to acute COPD exacerbation. Serial cardiac enzymes were negative and ACS was ruled out. CXR showed hyperinflated lungs with coarsened interstitial markings consistent with COPD. CT chest showed extensive and severe centrilobular and panlobular and well and bullous emphysematous changes and small nodular density in left apex. CT findings were discussed with patient and daughter at bedside with recommendations of close outpatient pulmonary follow up, PFTs and CT surveillance. She was on tapering steroids, duonebs, pulmicort, and brovana with improvement of symptoms. She was seen by pulmonary who agreed with above. During hospital stay she was hypoxic on room air requiring oxygen supplementation. Home O2 was arranged by employment case manager. Patient is discharged home to follow up with d or [facility]. Follow up with pulmonary. Recommended outpatient PFTs and repeat CT chest for follow up. Counselled on smoking cessation. Linwood Mathews MD Hospitalist.
== END 2018-01-19 17:39 | disposition home or self-care (01) | DRG 140 ==
LOC: ED 13:50 → ERH 15:28 → 2RNO 16:21 → OBSVTOIN 01-14 10:44 → 3RSO 01-14 16:40
PROVIDERS: ADMIT Internal Medicine; ATTEND Internal Medicine
PROC: 3E0F7GC Introduction of Other Therapeutic Substance into Respiratory Tract, Via Natural or Artificial Opening (ICD-10-PCS; principal; 2018-01-14)
DX: J44.1 Chronic obstructive pulmonary disease with (acute) exacerbation (principal); R64 Cachexia; E87.1 Hypo-osmolality and hyponatremia; F17.210 Nicotine dependence, cigarettes, uncomplicated; R09.02 Hypoxemia; R79.1 Abnormal coagulation profile